=== PATIENT | female | born 1940 | race Caucasian/White ===

== ENCOUNTER 2016-08-16 15:07 | Inpatient (IN) ==
[2016-08-16] MEDS ORDERED: DUONEB (A & A) INH ONE (15:20)
[2016-08-16 15:45] LABS: BASO% 0.8 % (0.0-0.8); EOS# 0.07 X1000 (0.0-0.7); EOS% 0.2 % (0.0-10.0); HEMATOCRIT 18.6 % (37.0-47.0); HEMOGLOBIN 6.1 g/dL (12.0-16.0); IMM GRAN# 2.42 X1000 (0.0-0.04); IMM GRAN% 6.5 % (0.0-0.5); LYMPH# 3.92 X1000 (1.2-3.4); LYMPH% 10.5 % (20.5-51.1); MANUAL DIFF NEEDED? YES; MCH 34.7 PG (27-31); MCHC 32.8 g/dL (33-37); MCV 105.7 FL (81-99); MONO# 3.31 X1000 (0.11-0.59); MONO% 8.9 % (1.7-9.3); NEUT% 73.1 % (42.2-75.2); PLT 365 X1000 (130-400); RBC 1.76 XMIL (4.2-5.4)
[2016-08-16 16:03] LABS: ALBUMIN 3.7 g/dL (3.5-5.0); CALCIUM 8.6 mg/dL (8.8-10.2); POTASSIUM 4.1 mmol/L (3.5-5.1); TOTAL BILIRUBIN 0.25 mg/dL (0.20-1.00); TOTAL PROTEIN 5.8 g/dL (6.3-8.3)
--- NOTE | 2016-08-16 16:04 | Diag Imaging Result Document ---
PROCEDURE NAME: CHEST-1 VIEW - 08/16/2016 PORTABLE CHEST X-RAY: COMPARISON: 03/16/2016. FINDINGS: There is slight decrease in the cardiomegaly. Lung volumes are improved. There is decrease in the pulmonary vascular congestion and bibasilar infiltrates/edema. The pleural effusions have essentially resolved. IMPRESSION: Significant improvement from prior.
[2016-08-16 16:08] LABS: INR > 11.25
[2016-08-16 16:13] LABS: BANDS 3 % (0-1); LYMPHS 12 % (21-51); NRBC 5 % (0-0)
[2016-08-16] MEDS ORDERED: VANCOMYCIN 1 GM/NS 1 GM/250 ML IVPB IV ONE (16:28)
[2016-08-16] MEDS ORDERED: NS 1,000 ML IV ONE (16:28)
[2016-08-16] MEDS ORDERED: VITAMIN K SUBQ ONE (16:37)
[2016-08-16] MEDS: ZOSYN 3.375 GM/NS 3.375 GM/50 ML IVPB IV SCH ×2 (16:43→22:56)
[2016-08-16 17:00] LABS: URINE CULTURE NEEDED? NO; URINE MICRO REVIEW NEEDED? NO; URINE SOURCE CLEAN CATCH
[2016-08-16 17:03] LABS: BILIRUBIN URINE NEGATIVE (NEGATIVE); BLOOD URINE NEGATIVE (NEGATIVE); COLOR YELLOW; GLUCOSE URINE NEGATIVE (NEGATIVE); LEUKOCYTES URINE NEGATIVE (NEGATIVE); NITRITE URINE NEGATIVE (NEGATIVE); PROTEIN URINE NEGATIVE (NEGATIVE); SP GRAVITY URINE 1.028; TURBIDITY URINE CLEAR (CLEAR); UROBILINOGEN URINE NORMAL (NORMAL)
[2016-08-16 17:04] LABS: UR EPITHELIAL CELLS <10 /HPF (<10); URINE BACTERIA NEGATIVE /HPF; URINE RBC <10 /HPF (<10); URINE WBC <10 /HPF (<10)
--- NOTE | 2016-08-16 17:04 | PROVIDER DOCUMENTATION ---
This chart was entered by Kenney Beyer Scribe, acting as scribe for Francis Cornejo MD. HPI-Chest Pain - General Chief Complaint: Shortness of Breath Stated Complaint: SOB Time Seen by Provider: 08/16/16 15:09 Source: patient Allergies/Adverse Reactions: Patient Allergies Allergy/AdvReac Type Severity Reaction Status Date / Time No Known Allergies Allergy Verified 07/28/16 10:51 Home Medications: Home Medication List Medication Instructions Recorded Confirmed Last Taken Type Digoxin 125 mcg PO QPM 08/09/12 08/16/16 08/15/16 19:00 History Diltiazem HCl [Diltiazem ER] 240 mg PO QHS 08/09/12 08/16/16 08/15/16 20:00 History Temazepam 30 mg PO QHS 08/09/12 08/16/16 07/27/16 18:30 History Ondansetron Odt [Zofran Odt] 8 mg PO TID PRN 09/24/15 08/16/16 08/16/16 08:00 History Albuterol Sulfate Inhaler 1 - 2 puff INH [id number] 07/28/16 08/16/16 Unknown History [Ventolin Hfa] Docusate Sodium [Colace] 100 mg PO QAM 07/28/16 08/16/16 08/16/16 08:00 History Fluticasone/Salmet 250/50 INH 1 puff INH QPM 07/28/16 08/16/16 07/28/16 03:00 History [Advair 250/50 Diskus] Ipratropium/Albuterol Sulfate 3 ml IH TID PRN 07/28/16 08/16/16 Unknown History [Iprat-Albut 0.5-3(2.5) mg/3 ml] Warfarin [Coumadin] 5 mg PO DIRECTED 07/28/16 08/16/16 08/16/16 08:00 History Warfarin [Coumadin] 7.5 mg PO DIRECTED 07/28/16 08/16/16 08/14/16 19:00 History - History of Present Illness-CP Nature of Presenting Problem: patient is a 76 y/o F that presents with sharp chest pain x 1 week. patient has shortness of breath with mild cough also for one week. Patient denies fever/ chills, n/v/d, or back pain. Patient has history of COPD and quit smoking less than one year ago. Location: reports: central Quality of Pain: reports: sharp Severity in ED: moderate Onset/Duration: gradual, 1 week ago Timing: still present, constant Context/Activities at Onset: reports: none Modifying Factors: worse with: exercise, movement Associated Symptoms: reports: back pain, shortness of breath. denies: diaphoresis, dizziness, edema, fever/chills, nausea, vomiting Similar Symptoms Previously?: No Recently Seen Here or By Another Healthcare Provider: No Review of Systems - Adult - REVIEW OF SYSTEMS - ADULT Constitutional: denies: chills, fever Eyes: reports: no symptoms reported Ears, Nose, Mouth & Throat: reports: no symptoms reported Cardiovascular: reports: chest pain. denies: palpitations, syncope Respiratory: reports: cough, shortness of breath, wheezing Gastrointestinal: reports: no symptoms reported Genitourinary: reports: no symptoms reported Musculoskeletal: reports: no symptoms reported Integumentary: reports: no symptoms reported Neurological: reports: no symptoms reported Psychiatric: reports: no symptoms reported Endocrine: reports: no symptoms reported Hematologic/Lymphatic: reports: no symptoms reported Allergic/Immunologic: reports: no symptoms reported All Other Systems: Reviewed and Negative Past History - Adult - PAST MEDICAL HISTORY-ADULT Review of Records: reports: Old Records Reviewed, Nursing Assessment Review, Medications Reviewed Major Childhood Illnesses: reports: denies history Cardiovascular: reports: A-Fib, HTN, heart valve problem (valve implant) Respiratory: reports: COPD Gastrointestinal: reports: denies history Obstetrical/Gynecological: reports: denies history Genitourinary: reports: denies history Musculoskeletal: reports: denies history Neurological: reports: denies history Endocrine/Immune: reports: denies history Other Conditions: reports: denies history - PRIOR SURGERIES/PROCEDURES Surgical/Procedure History: reports: appendectomy, CABG, hysterectomy, tonsillectomy, other (aortic valve) - IMMUNIZATION STATUS Childhood Immunizations: See Nurse Assessment Flu Vaccine: See Nurse Assessment - FAMILY HISTORY Family History: reviewed, not pertinent - SOCIAL HISTORY Smoking: quit less than 1 year, cigarettes Living Situation: family Physical Exam-General - PHYSICAL EXAM-ADULT Initial Vital Signs Reviewed: Yes - CONSTITUTIONAL General Appearance: alert, mild distress, moderate distress, thin, other ( chronic ill appearing) - EYES Eyes: PERRL/EOMI, pink conjunctivae - HEAD, EARS, NOSE, MOUTH & THROAT HENMT: normocephalic/atraumatic, moist mucous membranes, normal ENT inspection - NECK Neck: full range of motion, normal inspection - RESPIRATORY Respiratory: no respiratory distress, no accessory muscle use, decreased breath sounds (at bases), wheezing, increased rate - CARDIOVASCULAR Cardiovascular: regular rate, rhythm, no murmur - GASTROINTESTINAL (ABDOMEN) Abdominal Exam: normal bowel sounds, non tender, soft - MUSCULOSKELETAL Back Exam: normal inspection, no CVA tenderness Extremity: normal range of motion, normal inspection, no pedal edema - SKIN Integumentary: normal color, warm/dry - NEUROLOGIC Neurologic: grossly normal, no motor/sensory deficits - PSYCHIATRIC Psych/Mental Status: normal mood/affect, normal thought content, normal thought process, oriented x 3 Progress - PLAN OF CARE/RESULTS Progress/Plan/Lab Results: Vital Signs - 8 hr 08/16/16 15:14 08/16/16 16:09 08/16/16 16:25 Temperature 98.3 F Pulse Rate 95 H 101 H 83 Respiratory Rate 26 H 24 21 Blood Pressure 115/45 115/45 O2 Sat by Pulse Oximetry 94 L 100 Laboratory Results - last 24 hr 08/16/16 08/16/16 08/16/16 15:27 15:27 15:27 WBC RBC Hgb Hct MCV MCH MCHC RDW Std Deviation Plt Count MPV Immature Gran % (Auto) Neut % (Auto) Lymph % (Auto) [place] % (Auto) Eos % (Auto) Baso % (Auto) Immature Gran # (Auto) Neut # (Auto) Lymph # (Auto) [place] # (Auto) Eos # (Auto) Baso # (Auto) Segmented Neutrophils Band Neutrophils Lymphocytes Metamyelocytes Nucleated RBCs Pathologist Review Anisocytosis Macrocytosis PT INR > 11.25 H* PTT (Actin FS) 39.0 H Sodium Potassium Chloride Carbon Dioxide Anion Gap BUN Creatinine Estimated GFR/1.73 m2 BUN/Creatinine Ratio Glucose Calculated Osmolality Calcium Total Bilirubin AST ALT Alkaline Phosphatase Creatine Kinase 39 Troponin T < 0.010 Total Protein Albumin Globulin Albumin/Globulin Ratio Plasma Lactate Urine Source Urine Color Urine Turbidity Urine pH Ur Specific [place] Urine Protein Ur Glucose (Stick) Ur Ketones (Stick) Urine Blood Urine Nitrite Urine Bilirubin Urobilinogen Dipstick Urine Leukocytes 08/16/16 08/16/1608/16/17 15:27 15:27 15:49 WBC 37.22 H RBC 1.76 L Hgb 6.1 L Hct 18.6 L MCV 105.7 H MCH 34.7 H MCHC 32.8 L RDW Std Deviation 16.4 H Plt Count 365 MPV 10.0 Immature Gran % (Auto) 6.5 H Neut % (Auto) 73.1 Lymph % (Auto) 10.5 L [place] % (Auto) 8.9 Eos % (Auto) 0.2 Baso % (Auto) 0.8 Immature Gran # (Auto) 2.42 H Neut # (Auto) 27.20 H Lymph # (Auto) 3.92 H [place] # (Auto) 3.31 H Eos # (Auto) 0.07 Baso # (Auto) 0.30 H Segmented Neutrophils 83 H Band Neutrophils 3 H Lymphocytes 12 L Metamyelocytes 2.0 Nucleated RBCs 5 H Pathologist Review Anisocytosis 2+ Macrocytosis 2+ PT INR PTT (Actin FS) Sodium 135 L Potassium 4.1 Chloride 94 L Carbon Dioxide 27 Anion Gap 14 BUN 48 H Creatinine 1.2 H Estimated GFR/1.73 m2 44 BUN/Creatinine Ratio 40 Glucose 115 H Calculated Osmolality 284 Calcium 8.6 L Total Bilirubin 0.25 AST 23 ALT 17 Alkaline Phosphatase 50 Creatine Kinase Troponin T Total Protein 5.8 L Albumin 3.7 Globulin 2.1 Albumin/Globulin Ratio 1.8 Plasma Lactate 1.8 Urine Source Urine Color Urine Turbidity Urine pH Ur Specific [place] Urine Protein Ur Glucose (Stick) Ur Ketones (Stick) Urine Blood Urine Nitrite Urine Bilirubin Urobilinogen Dipstick Urine Leukocytes 08/16/16 16:45 WBC RBC Hgb Hct MCV MCH MCHC RDW Std Deviation Plt Count MPV Immature Gran % (Auto) Neut % (Auto) Lymph % (Auto) [place] % (Auto) Eos % (Auto) Baso % (Auto) Immature Gran # (Auto) Neut # (Auto) Lymph # (Auto) [place] # (Auto) Eos # (Auto) Baso # (Auto) Segmented Neutrophils Band Neutrophils Lymphocytes Metamyelocytes Nucleated RBCs Pathologist Review Anisocytosis Macrocytosis PT INR PTT (Actin FS) Sodium Potassium Chloride Carbon Dioxide Anion Gap BUN Creatinine Estimated GFR/1.73 m2 BUN/Creatinine Ratio Glucose Calculated Osmolality Calcium Total Bilirubin AST ALT Alkaline Phosphatase Creatine Kinase Troponin T Total Protein Albumin Globulin Albumin/Globulin Ratio Plasma Lactate Urine Source CLEAN CATCH Urine Color YELLOW Urine Turbidity CLEAR Urine pH 5.0 Ur Specific [place] 1.028 Urine Protein NEGATIVE Ur Glucose (Stick) NEGATIVE Ur Ketones (Stick) NEGATIVE Urine Blood NEGATIVE Urine Nitrite NEGATIVE Urine Bilirubin NEGATIVE Urobilinogen Dipstick NORMAL Urine Leukocytes NEGATIVE Orders Category Date Time Status Oxygen Therapy- ED Nursing DIRECTED Care 08/16/16 15:20 Active Saline Loc DIRECTED Care 08/16/16 15:20 Active CHEST-1 VIEW [RAD] Stat Exams 08/16/16 15:24 Draft BLOOD CULTURE [BLDCUL] Stat Lab 08/16/16 15:49 Results CBC WITH DIFF [HEME] Stat Lab 08/16/16 15:27 Completed CK PROFILE [SP CHEM] Stat Lab 08/16/16 15:27 Completed COMPREHENSIVE METABOLIC PANEL [CHEM] Stat Lab 08/16/16 15:27 Completed LACTATE, PLASMA [CHEM] Stat Lab 08/16/16 15:49 Completed LRPC (RED CELLS) [BBK] Stat Lab 08/16/16 16:45 Uncollected PROTIME WITH INR [COAG] Stat Lab 08/16/16 15:27 Completed PTT [COAG] Stat Lab 08/16/16 15:27 Completed TROPONIN T Stat Lab 08/16/16 15:27 Completed TYPE & SCREEN [BBK] Stat Lab 08/16/16 16:42 Uncollected URINALYSIS W/POSS RFLX CULT [URINALYSIS] Routine Lab 08/16/16 16:45 Results 0.9% Sodium Chloride Inj [Ns] 1,000 ml Med 08/16/16 16:28 Active IV 999 mls/hr Albuterol 2.5MG/Ipratrop 0.5MG [Duoneb (A & A)] Med 08/16/16 15:20 Discontinued 3 ml INH NOW ONE Phytonadione [Vitamin K] Med 08/16/16 16:37 Once 10 mg SUBQ NOW ONE Piperacil/Tazobact 3.375 gm/Ns [Zosyn 3.375 gm/Ns] Med 08/16/16 16:30 Active 3.375 gm in 50 ml IV Q6H Vancomycin 1 gm/Ns Med 08/16/16 16:28 Active 1 gm in 250 ml IV NOW Aerosol Treatments Routine Oth 08/16/16 15:21 Completed Aerosol Treatments Stat Oth 08/16/16 15:20 Completed Aerosol Treatments Stat Ot 08/16/16 15:21 Completed Pulse Oximetry Stat Ot 08/16/16 15:20 Completed Result Diagrams: 08/16/16 15:27 08/16/16 15:27 Departure - Departure Time of Disposition Decision: 17:04 DIAGNOSIS: Pneumonia, Coagulopathy, Chronic obstructive lung disease, Anemia Disposition: ADMITTED INPATIENT 09 Certified Medical Emergency: Emergent Condition: Serious Attestation - Physician/ WYATT Attestation Patient care was provided by Advanced Practice Provider:: Yes Advanced Practice Provider documentation review:: The Mid-level provider documentation, treatment plan and medical decision making was reviewed by the physician who agrees with all treatment and medical decision making by the MLP. The physician spent face to face time with patient:: Yes Advanced Practice Provider documentation review:: The physician spent face to face time with this patient and agrees with all MLP documentation, treatment, and medical decision making by the MLP. See provider notes for further information. This chart was documented by the indicated scribe, (Kenney Beyer, Cynthiaibe) and accurately reflects the services I performed and decisions made by Clemente castellanos Christophe I, MD, as attested by the provider's signature.
[2016-08-16] MEDS: MORPHINE IV PRN ×2 (17:50→23:20)
[2016-08-16 18:06] LABS: MAGNESIUM 2.2 mg/dL (1.5-2.7); RETIC% 8.73 % (0.8-2.1); RETIC-HE 41.5 PG (28.2-36.6)
[2016-08-16 18:10] LABS: ACETAMINOPHEN 54.6 ug/mL (10-30)
[2016-08-16 18:19] LABS: UR AMPHETAMINES QUAL NONE DETECTED (NONE DETECT); UR BARBITUATES QUAL NONE DETECTED (NONE DETECT); UR BENZODIAZEPIN QUAL PRESUMPTIVE POSITIVE (NONE DETECT); UR CANNABINOIDS QUAL NONE DETECTED (NONE DETECT); UR COCAINE QUAL NONE DETECTED (NONE DETECT); UR METHADONE QUAL NONE DETECTED (NONE DETECT); UR OPIATES QUAL NONE DETECTED (NONE DETECT); UR OXYCODONE QUAL NONE DETECTED (NONE DETECT); UR PCP QUAL NONE DETECTED (NONE DETECT)
[2016-08-16 18:20] LABS: FREE T4 1.01 ng/dL (0.93-1.70)
[2016-08-16] MEDS ORDERED: NS 500 ML ONE (20:03)
--- NOTE | 2016-08-16 23:03 | HISTORY AND PHYSICAL ---
PCP: Dr. Strickland. CHIEF COMPLAINT: Back pain. HISTORY OF PRESENT ILLNESS: Mrs. Kc is an unfortunate 76-year-old female, well known to our service. She has a history of COPD, chronic pain, prescription medication dependence, artificial mechanical aortic valve with previous admissions for profound coagulopathy and others, who presents today with severe lower back pain. She reports she has had back pain for years. As she is unable to get any more pain medication because her pain doctor Dr. Wilhelm has left town, she has been having to treat her pain on her own with over-the- counter medications and occasionally seeing her PCP. She reports yesterday she took upwards of 10 Tylenol tablets for pain relief. She reports her son could not watch her agonize in pain anymore today and sent her here to the ER. In the ER she had labs and diagnostics done. She was noted to have a white count of 37. Her INR was greater than 11.25 with hemoglobin and hematocrit of 6.1 and 18.6. She does report melenic stools and abdominal pain. Apparently she also has cholecystitis which is known. However she is not a surgical candidate given her comorbidities and high risk for surgery. She reports nausea no vomiting, no fevers, no chills. She does report cough with white sputum production. She denies any lower extremity edema. She denies any overt chest pain. Given the constellation of her symptoms, labs and overall picture, we are going to put her in the ICU for now. PAST MEDICAL HISTORY: 1. Chronic lower back pain. 2. Paroxysmal atrial fibrillation. 3. Coronary disease. 4. Aortic valve disease status post mechanical aortic valve replacement. 5. COPD on home O2. 6. Insomnia. 7. Previous admissions for coagulopathy. 8. Medical noncompliance. 9. Prescription medication dependence/abuse. PAST SURGICAL HISTORY: She has an appendectomy, CABG with mechanical valve replacement of the aorta, hysterectomy, tonsillectomy. SOCIAL HISTORY: She continues to live with her son. She reports that she quit smoking last August. She denies current alcohol use but she did state that she has been overtaking her temazepam as it helps her with her pain. FAMILY HISTORY: Noncontributory. ALLERGIES: No known drug allergies. HOME MEDICATIONS: Albuterol 1-2 puffs inhaled as needed, digoxin 125 mcg at night, Cardizem ER 240 mg p.o. at bedtime, Colace 100 mg a.m., Advair 250/50 one puff inhaled at night, albuterol as needed, Zofran ODT 8 mg p.o. as needed every 8 hours for nausea, vomiting, temazepam 30 mg at bedtime, Coumadin 5 mg and 7.5 mg as directed. REVIEW OF SYSTEMS: A 14 point review of systems obtained and found to be negative with the exception of the HPI. PHYSICAL EXAMINATION: VITAL SIGNS: Blood pressure is 124/47, heart rate 75, respiratory rate 18, O2 saturation 100% on room air. Temperature is 98.3 degrees. GENERAL: This is a frail, borderline cachectic appearing, disheveled appearing 76-year-old female lying in hospital bed. No acute distress. NEUROLOGIC: The patient is awake, alert. She follows commands. She has no focal deficits. HEENT: Head is atraumatic, normocephalic. Pupils are equal, round, reactive to light. Oral mucosa is dry. Trachea is midline. CHEST: Diminished at the bases. Ex[place]ion is equal bilaterally but her breath sounds are diminished. CV: Irregular rate and rhythm. S1-S2 is noted. Mechanical aortic valve murmur noted. GI: Right upper quadrant tenderness to palpation. Overall belly is soft. EXTREMITIES: Without edema, clubbing or cyanosis. DIAGNOSTIC DATA: Chest x-ray shows mild pulmonary vascular congestion and bibasilar infiltrates which have improved from previous. WBC 37.22, hemoglobin 6.1, hematocrit 18.6 , MCV 105.7, platelets 365,000. PT is greater than 100, INR greater than 11.25, PTT 39. Sodium 135, potassium 4.1, chloride 94, CO2 27, anion gap 14, BUN 48, creatinine 1.2, glucose 115, calcium 8.6. LFTs are within normal limits. Troponin is negative. Protein 5.8. UA is negative for acute process. ASSESSMENT/PLAN: 1. Coagulopathy: The patient is going to be reversed with FFP and vitamin K as she likely has upper gastrointestinal bleeding. We will transfuse her and monitor her INR being mindful of her mechanical valve. However at this time the greatest risk for this patient is bleeding. We will consult GI. We will hold off on her Coumadin for now. 2. Acute blood loss anemia: Secondary to upper gastrointestinal bleeding. We are going to check iron studies. Transfuse her 2 units of PRBCs with Lasix in between the FFP and PRBCs and monitor her hemoglobin and hematocrit closely. She is also likely folate and B12 deficient given her MCV. We will also treat this as well. 3. Upper gastrointestinal bleed: Dr. Moura has been consulted. The patient is NPO. We will add very gentle IV fluid hydration and Protonix IV b.i.d. Her hemodynamics are stable at this time. 4. Leukocytosis with signs of early sepsis: Source is unclear at this time. She likely has some pneumonia as well as possible intraabdominal process given her history of cholecystitis. We are giving IV fluids, broad-spectrum antibiotics, her lactic acid is within normal limits and her hemodynamics are stable at this time. We will monitor this closely. 5. Abdominal pain: We are checking a CT of the abdomen and pelvis with oral contrast now. She has mild renal insufficiency. GI has also been consulted. 6. Renal insufficiency: GFR 44 based on age and creatinine and weight. Will hold off on any nephrotoxic medications and give light IV fluid hydration and monitor her creatinine. 7. Chronic obstructive pulmonary disease: Continue broad-spectrum antibiotics, breathing treatments and aggressive pulmonary toilet. She does not appear to be in exacerbation at this time. 8. Tylenol overdose: Patient reports she took multiple pills of Tylenol yesterday in attempt for pain relief. This in part is likely worsening her INR. We are going to check a complete toxicology screen and monitor Tylenol levels and treat accordingly. We have instructed the patient against overuse of any over the counter medications. 9. Deep vein thrombosis prophylaxis with thromboembolic devices and sequential compression devices given the gastrointestinal bleed. Further recommendations to follow. Dictated by SAHIL Greenfield for Ashok Mata MD cc: MD Ashok Vazquez MD pt examined, agree with above APENOT MTDD
[2016-08-16] MEDS ORDERED: DUONEB (A & A) INH PRN (23:43)
[2016-08-16] MEDS ORDERED: ZOSYN 3.375 GM/NS 3.375 GM/50 ML IVPB IV SCH (23:43)
[2016-08-16] MEDS ORDERED: VANCOMYCIN IV PER PHARMACY MISC SCH (23:43)
[2016-08-16] MEDS ORDERED: LASIX IV PRN (23:43)
[2016-08-16] MEDS ORDERED: PROTONIX IV SCH (23:43)
[2016-08-16] MEDS ORDERED: SODIUM CHLORIDE 0.9% INJ SCH (23:43)
[2016-08-16] MEDS: CARDIZEM CD PO SCH (23:58)
[2016-08-16] MEDS: NS 1,000 ML IV SCH (23:58)
[2016-08-17] MEDS: RESTORIL PO SCH ×2 (00:01→21:41)
[2016-08-17] MEDS: DUONEB (A & A) INH SCH ×7 (03:55→23:28)
[2016-08-17] MEDS: ADVAIR 250/50 DISKUS INH SCH (03:55)
[2016-08-17] MEDS: VENTOLIN HFA INH SCH ×5 (03:55→23:29)
[2016-08-17 04:18] LABS: URINE CULTURE NEEDED? NO; URINE MICRO REVIEW NEEDED? NO; URINE SOURCE CATH
[2016-08-17 04:26] LABS: BILIRUBIN URINE NEGATIVE (NEGATIVE); BLOOD URINE NEGATIVE (NEGATIVE); COLOR STRAW; GLUCOSE URINE NEGATIVE (NEGATIVE); LEUKOCYTES URINE NEGATIVE (NEGATIVE); NITRITE URINE NEGATIVE (NEGATIVE); PROTEIN URINE NEGATIVE (NEGATIVE); SP GRAVITY URINE 1.008; TURBIDITY URINE CLEAR (CLEAR); UROBILINOGEN URINE NORMAL (NORMAL)
[2016-08-17 04:27] LABS: UR EPITHELIAL CELLS <10 /HPF (<10); URINE BACTERIA NEGATIVE /HPF; URINE RBC <10 /HPF (<10); URINE WBC <10 /HPF (<10)
[2016-08-17] MEDS: ZOSYN 3.375 GM/NS 3.375 GM/50 ML IVPB IV SCH ×4 (05:06→21:41)
[2016-08-17 05:48] LABS: HEMATOCRIT 23.1 % (37.0-47.0); HEMOGLOBIN 7.7 g/dL (12.0-16.0); MCH 32.4 PG (27-31); MCHC 33.3 g/dL (33-37); MCV 97.1 FL (81-99); RBC 2.38 XMIL (4.2-5.4)
[2016-08-17 05:49] LABS: INR 1.82; PROTIME 19.8 Seconds (9.2-11.7)
[2016-08-17 06:16] LABS: AGAP 14; ALBUMIN 3.7 g/dL (3.5-5.0); ALKALINE PHOSPHATASE 50 U/L (32-104); BUN 29 mg/dL (8-22); CALCIUM 7.7 mg/dL (8.8-10.2); CHLORIDE 98 mmol/L (98-107); COSMO 282; GOT 24 U/L (10-30); GPT 15 U/L (10-36); SODIUM 139 mmol/L (136-145); TCO2 27 mmol/L (25-35); TOTAL BILIRUBIN 0.64 mg/dL (0.20-1.00); TOTAL PROTEIN 5.8 g/dL (6.3-8.3)
[2016-08-17] MEDS: COLACE PO SCH (09:18)
[2016-08-17] MEDS: MORPHINE IV PRN ×2 (09:22→16:05)
--- NOTE | 2016-08-17 09:31 | Diag Imaging Result Document ---
PROCEDURE NAME: CT ABD/PELVIS ORAL CONTR ONLY - 08/16/2016 CT ABDOMEN AND PELVIS WITH ORAL CONTRAST ONLY: COMPARISON: 03/11/2016. FINDINGS: Review of the lung bases reveals a stable large calcified granuloma in the left lower lobe. There has been interval development of a noncalcified nodule with a vaguely lobulated lower border in the right lower lobe on image 8 of series 3. It measures 1.2 x 1.1 cm in the greatest axial dimensions. Although this may represent a new inflammatory nodule, neoplasm cannot completely be excluded. Consider CT-guided biopsy or at least a follow-up chest CT in 3 months based on Joe Society Criteria for a nodule of this size. There is mild subsegmental atelectasis and/or scarring at the lung bases. There is cardiomegaly. There is a large stone in the lumen of the gallbladder. The gallbladder is somewhat distended. However, no surrounding inflammatory changes are appreciated. No renal or ureteral stones are identified. There is no evidence of hydronephrosis. There is suggestion of mild wall thickening involving a short segment of the small bowel in the right lower quadrant. This can be appreciated on image 107 of series 2. It is nonspecific. Focal enteritis should be considered. There is a stable left renal cyst. There is extensive aortoiliac atherosclerotic calcification. The remainder of the solid viscera of the abdomen and pelvis and the remainder of the GI tract is essentially unremarkable. No free abdominal gas or free fluid is appreciated. IMPRESSION: 1. Short segment of apparently mild small bowel wall thickening in the right lower quadrant suggesting possible focal enteritis. 2. Cholelithiasis. 3. New fairly prominent noncalcified nodule in the right lower lobe near the anterior lung base. Please see the above discussion. 4. Other incidental/nonacute findings detailed above. [facility]
[2016-08-17] MEDS ORDERED: LASIX IV ONE (11:26)
[2016-08-17] MEDS: POTASSIUM CHLORIDE 20 MEQ/SWI 20 MEQ/100 ML IVPB IV SCH ×2 (11:42→15:38)
[2016-08-17] MEDS ORDERED: NS 250 ML ONE (12:06)
[2016-08-17] MEDS: PROTONIX 80 MG in NS 80 ML IV SCH ×2 (12:12→21:42)
--- NOTE | 2016-08-17 14:03 | CONSULTATION ---
DATE OF CONSULTATION: 08/17/2016 REFERRING PHYSICIAN: Koko Mata M.D. PRIMARY CARE PHYSICIAN: Marivel Strickland M.D. INDICATION FOR CONSULTATION: 1. Melena. 2. Epigastric pain. 3. Severe anemia. HISTORY OF PRESENT ILLNESS: The patient is a 76-year-old white female who is on Coumadin secondary to aortic valve replacement. She has mechanical heart valve that requires lifelong anticoagulation. She reports 1 week of melena and epigastric pain. She presented to the emergency room with Coumadin toxicity. Because of her profound anemia and melena, we are asked to perform endoscopic evaluation. PAST MEDICAL HISTORY: 1. COPD, on home oxygen. 2. Atrial fibrillation. 3. Aortic valve replacement secondary to valvular heart disease. She has a mechanical valve and is on lifelong Coumadin. 4. Chronic pain syndrome. 5. Lower back pain. 6. Coronary artery disease. 7. Insomnia. 8. History of coagulopathy secondary to Coumadin toxicity. 9. Medical noncompliance. 10. Dependence on prescription pain medication. PAST SURGICAL HISTORY: 1. Appendectomy. 2. Coronary artery bypass surgery with aortic valve replacement. 3. Hysterectomy. 4. Tonsillectomy. SOCIAL HISTORY: The patient has been a longtime smoker. She stopped smoking in 2016. She denies alcohol, recreational drug use. FAMILY HISTORY: Positive for coronary artery disease but negative for colon cancer, colon polyps. REVIEW OF SYSTEMS: Remarkable for epigastric pain, weakness and fatigue. MEDICATION ALLERGIES: None. HOME MEDICATIONS: 1. Albuterol. 2. Digoxin. 3. Cardizem ER. 4. Colace. 5. Advair. 6. Albuterol. 7. Zofran. 8. Temazepam. 9. Coumadin. PHYSICAL EXAM: General: She is in no acute distress. Vital signs: Her blood pressure is 141/63, pulse 78, respirations 12, temperature of 97.8 degrees. HEENT: Negative for jaundice. Her conjunctivae are pale. Her oropharyngeal mucosal membranes dry. Pulmonary : She has clear breath sounds. They are somewhat decreased in the bases bilaterally. Cardiovascular Examination: She has regular rate and rhythm with mechanical heart sounds. No murmurs, gallops, or rubs. Extremities: Bilaterally are negative for cyanosis, clubbing, or edema. OBJECTIVE DATA: Remarkable for hemoglobin of 7.7, hematocrit of 23.1 and a white count of 25.84. She has 260,000 platelets. Her PT is 19.8 with an INR of 1.82. Sodium is 139, potassium 3.0, chloride 98, CO2 27, BUN 29, creatinine 0.7, glucose of 73. Calcium 7.7, total bilirubin 0.64, AST 24, ALT 15, alkaline phosphatase 50, CK 58, total protein 5.[address] scan of the abdomen and pelvis revealed a pulmonary nodule, gallstones, possible small bowel enteritis and left renal cyst. IMPRESSION: 1. Melena. 2. Epigastric pain. 3. Probable gastrointestinal bleed. 4. Coumadin toxicity. RECOMMENDATION: 1. Last admission, we recommended an EGD prior to discharge due to her presentation with melena in March 2016. Unfortunately, the patient was discharged to home and never returned to clinic for an EGD. I recommend that we perform the exam today in light of her ongoing GI symptoms. 2. The patient reports in her history to the admitting service she took multiple Tylenol tablets yesterday. We await her acetaminophen levels. 3. I agree with transfusing as you are doing. I will also administer another unit of FFP in order to correct her coagulopathy prior to the EGD which we will perform this afternoon. 4. Continue Protonix 40 mg IV q.12 hours. 5. Additional recommendations to follow based on clinical course. cc: Marivel Strickland MD [facility]
--- NOTE | 2016-08-17 15:30 | EKG Report ---
Test Performed on : 08/17/2016 2:20:08 PM Test Reason : dyspnea Blood Pressure : / mmHG Vent. Rate : 076 BPM Atrial Rate : 094 BPM P-R Int : 000 ms QRS Dur : 152 ms QT Int : 414 ms P-R-T Axes : 000 096 043 degrees QTc Int : 465 ms Atrial fibrillation. with premature ventricular or aberrantly conducted complexes. Right bundle branch block T wave abnormality, consider lateral ischemia Abnormal ECG When compared with ECG of 11-MAR-2016 18:11, T wave inversion more evident in Anterior leads Confirmed by Rodrigo PHOENIX, Shant King ([id number]) on 08/18/2016 5:52:15 PM
[2016-08-17 18:19] LABS: HEMATOCRIT 27.3 % (37.0-47.0); HEMOGLOBIN 9.2 g/dL (12.0-16.0)
--- NOTE | 2016-08-17 18:42 | CONSULTATION ---
DATE OF CONSULTATION: 08/17/2016 REASON FOR CONSULTATION: Coumadin toxicity, anemia. HISTORY OF PRESENT ILLNESS: Ms. Kc is a 76-year-old female who presented to the hospital on August 16 complaining of chronic back pain associated with weakness, black stools. Upon presentation to the emergency room, they did blood work and that indicated that her hemoglobin was very low at 6.1, hematocrit was 18.6, white count was 37,220. Her INR was greater than 11.25. They proceeded to give the patient blood products including fresh frozen plasma and blood transfusions. Subsequently hemoglobin was 7.7 with hematocrit of 23.1% and white count has dropped to 25,000. She does demonstrated 8.7% reticulocytes and her MCV on initial blood work was 105.7. The patient is not having any chest pain at this time. They have consulted us because of her history of valvular disease. History is positive for paroxysmal atrial fibrillation. 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 She has been on long-term anticoagulation with warfarin. She has COPD. She is on home oxygen. She has been medically noncompliant in the past. She is on long-term narcotic medications for pain issues. Her surgical history is positive for aortic valve replacement on 07/25/1996, Dr. Padgett, using a [address] Randall prosthesis. The patient at that time was having angina pectoris. She is not known to have had coronary heart disease, however, previous echocardiograms have suggested the possibility of a wall motion abnormality. The patient has had previous cardioversions for atrial fibrillation. She has chronic back pain. Her history is positive for tonsillectomy, appendectomy, and hysterectomy. SOCIAL HISTORY: She is . She lives with her son. She is a smoker. She quit a few months ago. Not a drinker. FAMILY HISTORY: Son had sudden at the age of 36. ALLERGIES: Negative. HOME MEDICATIONS: 1. Warfarin. 2. Furosemide. 3. Hydrocodone/acetaminophen twice a day. 4. Temazepam. 5. Centrum. 6. Ipratropium. 7. Advair. 8. Docusate. 9. Diltiazem 240 at bedtime. 10.Digoxin 0.125 daily. REVIEW OF SYSTEMS: Noncontributory. Her functional status has dropped dramatically. She admits to having black stools lately. She has had an abnormal EKG for a long time with a right bundle branch block pattern. She is chronically short of breath. Her appetite is not good. Her BMI is 18.3. She has dropped her weight. PHYSICAL EXAMINATION: Vital signs: Blood pressure 141/63, temperature 98.7, pulse 78, respirations 18. General: She is awake, alert, pale, in no distress. HEENT: Unremarkable. Chest: Diminished breath sounds diffusely with hyperresonance to percussion. Cardiac: Heart sounds are irregularly irregular. She has a closing click of prosthetic aortic valve. Abdomen: Nontender, soft. No masses, hepatomegaly. Extremities: Show decreased pulses. No peripheral edema. Neurologic: She moves four extremities, follows commands. LABORATORY DATA: Her chest x-ray from admission showed evidence of cardiomegaly, calcification of the aortic root with some vascular redistribution. CT scan of the abdomen and pelvis showed cholelithiasis, enteritis. BUN 29, creatinine 0.7, potassium 3.0. Troponins were negative. IMPRESSION: 1. Patient presented with severe anemia with some macrocytic features, probably secondary to chronic and acute gastrointestinal bleeding. Patient is on long-term anticoagulation for management of mechanical prosthetic aortic valve, [employer] Randall. 2. Chronic atrial fibrillation versus paroxysmal. 3. Questionable history of coronary heart disease. 4. Chronic back pain with long-term narcotic use. 5. Chronic obstructive pulmonary disease with long-term tobacco use. RECOMMENDATIONS: At this point in time, we will observe the patient's clinical course. I would continue digoxin and diltiazem as she was doing at home. I do not have any issue about the patient having an endoscopy. She needs that. After endoscopic studies and once they have ruled out active GI bleeding, she needs to be put back on warfarin to accomplish therapeutic levels of anticoagulation. We will be happy to arrange for followup. Thank you, again, for the opportunity to participate in her evaluation. cc: Brandon Coffey MD
[2016-08-17] MEDS ORDERED: DIPRIVAN 1% ONE (19:14)
[2016-08-17] MEDS ORDERED: SANDOSTATIN IV ONE (20:10)
[2016-08-17] MEDS: CARDIZEM CD PO SCH (21:41)
[2016-08-17] MEDS: CARAFATE LIQUID PO SCH (21:41)
[2016-08-17] MEDS: SANDOSTATIN 500 MICROGM in D5W 100 ML IV SCH (21:42)
[2016-08-17] MEDS: NS 1,000 ML IV SCH (21:42)
[2016-08-18] MEDS: CARAFATE LIQUID PO SCH ×4 (02:38→20:53)
[2016-08-18] MEDS: MORPHINE IV PRN ×4 (02:38→18:30)
[2016-08-18] MEDS: VENTOLIN HFA INH SCH ×4 (03:36→23:24)
[2016-08-18] MEDS: DUONEB (A & A) INH SCH ×6 (03:37→23:24)
[2016-08-18] MEDS: ZOSYN 3.375 GM/NS 3.375 GM/50 ML IVPB IV SCH ×4 (04:45→22:36)
[2016-08-18] MEDS: ADVAIR 250/50 DISKUS INH SCH ×2 (06:12→19:23)
[2016-08-18] MEDS: SANDOSTATIN 500 MICROGM in D5W 100 ML IV SCH ×2 (06:14→15:43)
[2016-08-18 06:17] LABS: AGAP 10; ALBUMIN 3.4 g/dL (3.5-5.0); ALKALINE PHOSPHATASE 61 U/L (32-104); BUN 15 mg/dL (8-22); CALCIUM 8.1 mg/dL (8.8-10.2); CHLORIDE 95 mmol/L (98-107); COSMO 274; GOT 27 U/L (10-30); GPT 13 U/L (10-36); POTASSIUM 3.8 mmol/L (3.5-5.1); SODIUM 134 mmol/L (136-145); TCO2 29 mmol/L (25-35); TOTAL BILIRUBIN 0.56 mg/dL (0.20-1.00); TOTAL PROTEIN 5.6 g/dL (6.3-8.3)
[2016-08-18] MEDS: PROTONIX 80 MG in NS 80 ML IV SCH ×2 (07:29→17:35)
--- NOTE | 2016-08-18 08:01 | PROGRESS NOTE ---
DATE: 08/17/2016 SUBJECTIVE: The patient has no focal complaints. OBJECTIVE: Vital signs: Blood pressure 125/52, heart rate 69, respiratory rate 16, temperature 99.3 degrees, 100% on 2 L. Cardiovascular: Regular rate and rhythm. Pulmonary: Bilateral breath sounds. Clear to auscultation. GI: Soft, nontender, nondistended. Bowel sounds are positive. Extremities: No clubbing or cyanosis. Lymphatic: No peripheral edema. Neurological: Nonfocal. LABORATORY DATA: White count is 25, down from 37, hemoglobin and hematocrit are 7 and 23, platelets of 260,000. INR is down to 1.8 from greater than 11. Potassium of 3, BUN of 29, calcium 7.7. UA was clear. Micro is unremarkable. ASSESSMENT AND PLAN: 1. Upper gastrointestinal bleed. I am going to switch her to a Protonix drip because she did have melena. Hemoglobin and hematocrit have come back and INR has greatly improved. We will continue to monitor that. I think the threshold for endoscopy would be less than 1.5 but that will be at the discretion of the GI physician. She has gotten FFP and vitamin K. So, we will follow clinically. 2. Symptomatic anemia. With her cardiac history I am going to go ahead and give her 1 more unit of blood because she is 7 and 23 and we will follow closely. 3. Coagulopathy. We will continue to monitor. Obviously we will need to resume her anticoagulation as soon as cleared by GI after her endoscopic workup. 4. Chronic obstructive pulmonary disease exacerbation. Continue antibiotics and breathing treatments. 5. Multilobar pneumonia. I am going to repeat her chest x-ray tomorrow and we will follow clinically. Again, she is currently on vancomycin and Zosyn. 6. Disposition. Pending her clinical course. We will continue to monitor her in then ICU. cc: Ashok Mata MD
[2016-08-18] MEDS ORDERED: LR 1,000 ML ONE (08:26)
[2016-08-18] MEDS ORDERED: ANESTHESIA PB SET 88 IN 5742 ONE (08:26)
[2016-08-18] MEDS ORDERED: XYLOCAINE-MPF 2% ONE (08:26)
[2016-08-18] MEDS: COLACE PO SCH (09:06)
[2016-08-18 09:35] LABS: HEMOGLOBIN 8.9 g/dL (12.0-16.0); INR 0.99; MCV 97.1 FL (81-99); MPV 9.7 FL (7.4-10.4); PROTIME 10.4 Seconds (9.2-11.7); RBC 2.78 XMIL (4.2-5.4)
[2016-08-18] MEDS: NS 1,000 ML IV SCH (15:57)
[2016-08-18] MEDS ORDERED: VANCOMYCIN 1 GM/NS 1 GM/250 ML IVPB IV SCH ×2 (17:00→18:00)
--- NOTE | 2016-08-18 18:22 | PROGRESS NOTE ---
DATE: 08/18/2016 SUBJECTIVE: The patient is feeling well. She has no complaint. She denies having any recurrent bleeding. OBJECTIVE: Vital signs: Blood pressure 132/63, pulse of 86, respirations 22, temperature 99.9 degrees, sat of 94% on 2 L nasal cannula. General appearance: Thin, white female in no acute distress. HEENT: Anicteric. Clear conjunctivae. Neck: Supple. No JVD. No bruit. Cardiovascular: S1, S2. Normal rate and rhythm. No murmur, rubs, or gallops. Pulmonary: Clear to auscultation bilaterally. GI: Soft, nontender, nondistended. Normoactive bowel sounds. Musculoskeletal: No clubbing, cyanosis, edema. LABORATORY: White count 16.77, hemoglobin 8.9, hematocrit of 27.0, platelets 263,000. Chemistry: Sodium 134, potassium 3.8, chloride 95, bicarb 29, BUN 15, creatinine 0.5. Glucose 180. Blood cultures and stool cultures have been negative. The CAT scan of the abdomen and pelvic showed short segment of the apparent small bowel wall thickening in the right lower quadrant suggesting possible enteritis. ASSESSMENT/PLAN: 76-year-old admitted to the hospital for lower GI bleed. 1. Lower low GI bleed, status post three packs red blood cells and fresh frozen plasma. Hemoglobin and hematocrit seem to be stabilized. GI is following. 1. Paroxysmal atrial fibrillation and aortic valve replacement with a mechanical valve. The patient has been on long-term anticoagulation with warfarin with increased her risk of bleeding. For her atrial fibrillation we will continue digoxin and diltiazem. Hold her anticoagulation for now. The patient will need an endoscopy at some point. We need to put the patient back on Coumadin once GI is done with the procedure. The patient currently on the broad-spectrum antibiotics. Culture has remained negative thus far. We will probably DC the antibiotics within the next day or 2 if cultures continue to remain negative. 2. The patient also has melena. Probably had some component of upper GI bleed. The patient on octreotide and Protonix drips. CODE STATUS: The patient is a full code.
[2016-08-18] MEDS: RESTORIL PO SCH (20:53)
[2016-08-18] MEDS: CARDIZEM CD PO SCH (20:53)
[2016-08-18] MEDS: LANOXIN PO SCH (20:53)
--- NOTE | 2016-08-18 20:55 | PROGRESS NOTE ---
DATE: 08/18/2016 ADDENDUM: SUBJECTIVE: After my initial visit during rounds, the patient became acutely short of breath with desaturations into the 60s and 70s. She responded to 100% nonrebreathing mask with saturations in the 100%. In light of this, I recommend: 1. Pulmonary consult with Dr. Mirza Tellez. 2. I will begin Lovenox 1 mg/kg every 12 hours starting now. 3. Please check a CBC at midnight and monitor for active GI bleeding in light of her endoscopic findings yesterday. cc: MD Marivel Salazar MD Alexis R. Penot, MD
--- NOTE | 2016-08-18 21:00 | OPERATIVE NOTE ---
PROCEDURE DATE: 08/17/2016 REFERRING PHYSICIAN: Ashok Mata M.D. PRIMARY CARE PHYSICIAN: Marivel Strickland M.D. INDICATIONS FOR PROCEDURE: 1. Melena. 2. Anemia. 3. Epigastric pain. 4. Coumadin toxicity. PROCEDURE PERFORMED: Esophagogastroduodenoscopy. CONSENT: Informed consent was obtained from the patient prior to the procedure. The risks, benefits, and alternatives were discussed with the patient and her daughter. The risks benefits and alternatives were reviewed in detail. MEDICATION: The patient received monitored anesthesia care. PERFORMING PHYSICIAN: Dayami Romero M.D. ASSISTANTS: 1. [facility] 2. Jared Jacobo RN. 3. Henna Seo CRNA. 4. Chandler Napier M.D. (anesthesia). COMPLICATIONS: None. ESTIMATED BLOOD LOSS: None. SPECIMENS REMOVED: None. FINDINGS: After sedation was achieved, the upper endoscope was inserted to the third portion of the duodenum. The hypopharynx appeared normal. The tubular esophagus was tortuous, but had a grossly normal mucosa. There was no evidence of varices or Garza's mucosa. The GE junction was measured at 36 cm from the incisors. There was a hiatal hernia that spanned from 36-42 cm. In the gastric lumen, there was severe erosive gastritis and multiple hyperemic but nonbleeding AVMs in the body and fundus. On retroflexed view, there were a few scattered fundic gland polyps, but the fundus was mostly notable for multiple nonbleeding AVMs. On forward view, the pylorus appeared endoscopically normal. In the duodenal bulb, there were at least 3 duodenal ulcers that ranged in size from 5-10 mm in size. All 3 had a whitish base with no stigmata of active bleeding. There was duodenitis with multiple deep erosions in the 1st and 2nd portion of the duodenum. The ampulla of Vater appeared endoscopically normal. In the third portion of the duodenum, the mucosa was grossly normal. After the exam was complete, the lumen was decompressed and the scope was removed without incident. IMPRESSION: 1. Tortuous esophagus but grossly normal. 2. Hiatal hernia. 3. Erosive gastritis. 4. 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 5. Duodenal bulb ulcer. 6. Severe duodenitis. RECOMMENDATION: 1. Continue Protonix ip for 72 hours and then transition to q.12 hours. 2. Add Carafate suspension 1 g p.o. 4 times a day for 12 weeks. 3. Begin octreotide drip and continue for 72 hours and then transition to subcut injections only if there is evidence of active bleeding. 4. Check a stool antigen for H. pylori. 5. Monitor serial hemoglobin and hematocrit and transfuse as indicated. 6. Because the patient has a mechanical heart valve, I would resume low dose anticoagulation as soon as possible. 7. Begin a clear liquid diet. If she is doing well, on 08/18/2016 I would advance her diet to a full liquid diet. 8. Additional recommendations to follow based on her clinical course. cc: MD Ashok Salazar MD Hiteshri S. Bhavsar, MD MTDD
--- NOTE | 2016-08-18 21:04 | PROGRESS NOTE ---
DATE: 08/18/2016 SUBJECTIVE: The patient states that she is feeling much better from a GI standpoint. She has notably more shortness of breath today than before. She denies chest pain and states that this is her usual shortness of breath that occurs in the spring. OBJECTIVE: Vital signs: On exam, she is mildly tachypneic, but in no acute distress. Her blood pressure is 103/72, pulse 92, respirations 16, temperature of 98.6 degrees. HEENT: Negative for jaundice. Oropharyngeal mucosal membranes are slightly dry. Pulmonary: She has scattered inspiratory and expiratory wheezes. There are no rhonchi or rales heard. Cardiovascular: She has a regular rate and rhythm with no gallops or rubs. There is a mechanical heart valve sound that is appreciated. Abdominal: Exam reveals normoactive bowel sounds. The abdomen is soft and nontender, with no rebound or guarding. OBJECTIVE DATA: Remarkable for hemoglobin of 8.9 with hematocrit of 27 and a white count of 6.77. Her PT is 10.4 and INR 0.99. Sodium is 134, potassium 3.8, chloride 95, CO2 29, BUN 15, creatinine 0.5 with a glucose of 180. Calcium is 8.1, magnesium 1.8, total bilirubin 0.56. AST is 27, ALT 13, alkaline phosphatase 61, total protein 5.6, albumin 3.4. RECOMMENDATION: 1. Continue octreotide drip and Protonix drip. 2. Continue Carafate. 3. Begin Lovenox pending the resumption of her Coumadin therapy. 4. I would resume her Coumadin at low dose as she has a mechanical heart valve and is at risk for thromboembolic phenomenon. 5. From a GI perspective, she is improved. Therefore, I would advance her diet to a full liquid diet. Please continue advancing to a heart healthy diet as tolerated over the next 2-3 days. However, if her hemoglobin drops, I would not advance her diet as she may need re-evaluation from an endoscopic perspective. cc: MD Ashok Salazar MD Hiteshri S. Bhavsar, MD
[2016-08-18] MEDS ORDERED: LASIX IV ONE (21:34)
[2016-08-18] MEDS: LOVENOX SUBQ SCH (22:37)
[2016-08-19] MEDS: SANDOSTATIN 500 MICROGM in D5W 100 ML IV SCH ×3 (02:14→22:33)
[2016-08-19] MEDS: CARAFATE LIQUID PO SCH ×4 (02:14→21:13)
[2016-08-19] MEDS: DUONEB (A & A) INH SCH ×6 (03:31→23:00)
[2016-08-19] MEDS: VENTOLIN HFA INH SCH ×4 (03:51→23:24)
[2016-08-19] MEDS: MORPHINE IV PRN ×3 (04:02→18:30)
[2016-08-19] MEDS: ZOSYN 3.375 GM/NS 3.375 GM/50 ML IVPB IV SCH ×4 (04:03→22:23)
[2016-08-19] MEDS: PROTONIX 80 MG in NS 80 ML IV SCH ×2 (04:03→13:56)
[2016-08-19 05:28] LABS: BASO% 0.5 % (0.0-0.8); EOS# 0.19 X1000 (0.0-0.7); EOS% 1.2 % (0.0-10.0); HEMATOCRIT 26.3 % (37.0-47.0); HEMOGLOBIN 8.4 g/dL (12.0-16.0); IMM GRAN# 0.66 X1000 (0.0-0.04); LYMPH# 1.23 X1000 (1.2-3.4); LYMPH% 7.5 % (20.5-51.1); MANUAL DIFF NEEDED? YES; MCH 31.6 PG (27-31); MCHC 31.9 g/dL (33-37); MCV 98.9 FL (81-99); MONO% 11.5 % (1.7-9.3); MPV 8.9 FL (7.4-10.4); NEUT% 75.3 % (42.2-75.2); PLT 252 X1000 (130-400); RBC 2.66 XMIL (4.2-5.4)
[2016-08-19 05:42] LABS: LYMPHS 4 % (21-51); MONO 8 % (1-9)
[2016-08-19 05:51] LABS: AGAP 10; ALBUMIN 3.3 g/dL (3.5-5.0); ALKALINE PHOSPHATASE 56 U/L (32-104); BUN 6 mg/dL (8-22); CHLORIDE 92 mmol/L (98-107); COSMO 277; GOT 18 U/L (10-30); GPT 12 U/L (10-36); POTASSIUM 3.1 mmol/L (3.5-5.1); SODIUM 138 mmol/L (136-145); TCO2 36 mmol/L (25-35); TOTAL BILIRUBIN 0.86 mg/dL (0.20-1.00)
--- NOTE | 2016-08-19 08:20 | Diag Imaging Result Document ---
PROCEDURE NAME: CHEST-PORTABLE - 08/19/2016 SINGLE FRONTAL RADIOGRAPH OF THE CHEST: COMPARISON: 08/18/2016. FINDINGS: The right basilar infiltrate is unchanged. No new consolidation is identified. The cardiac silhouette is stable. IMPRESSION: Stable chest.
[2016-08-19] MEDS: LOVENOX SUBQ SCH (08:55)
[2016-08-19] MEDS: COLACE PO SCH (08:55)
--- NOTE | 2016-08-19 08:57 | Diag Imaging Result Document ---
PROCEDURE NAME: CHEST-PORTABLE - 08/18/2016 SINGLE FRONTAL RADIOGRAPH OF THE CHEST: COMPARISON: 08/16/2016. FINDINGS: There has been interval development of a consolidation at the right lung base. There may also be a small effusion. Increased interstitial markings are again noted bilaterally similar to the previous study. Cardiac silhouette is stable. IMPRESSION: Interval development of a right basilar consolidation.
[2016-08-19] MEDS: POTASSIUM CHLORIDE 20 MEQ/SWI 20 MEQ/100 ML IVPB IV SCH ×2 (11:36→13:56)
--- NOTE | 2016-08-19 12:14 | CONSULTATION ---
DATE OF CONSULTATION: 08/18/2016 TIME: 9:00 p.m. REQUESTING PHYSICIAN: Dr. Dayami Romero. REASON FOR CONSULTATION: Respiratory failure. HISTORY OF PRESENT ILLNESS: Ms. Kc is a 76-year-old, white female with a 50 pack year history for tobacco (nonsmoker times 1-2 years), and a history of a mechanical valve replacement who was admitted to the hospital on 08/16/2016 with Coumadin toxicity and anemia. The patient has a history of narcotic dependency and noncompliance in the past. The patient went for an EGD yesterday and the patient was found to have erosive gastritis and multiple AVMs in the body and fundus of the stomach, along with duodenitis and multiple erosions in the duodenum, along with a duodenal bulbar ulcer. Her anticoagulation was reversed. She has received 3 units of packed red blood cells and 3 units of fresh frozen plasma. She is routinely on 2 L of oxygen per nasal cannula. This evening, the patient complained of increasing shortness of breath and her oxygen saturation was 77% Pulmonary consultation was requested by Dr. Romero. PAST MEDICAL HISTORY/PROBLEM LIST: 1. COPD with a 50 pack year history for tobacco. 2. History of prior Coumadin toxicity. 3. Paroxysmal atrial fibrillation. 4. Status post mechanical aortic valve replacement in 1996. 5. 6. Status post hysterectomy. SOCIAL HISTORY: No alcohol use listed. She is . She lives with family. FAMILY HISTORY: Notable for sudden cardiac in a child in his 30s. REVIEW OF SYSTEMS: Noncontributory except for worsening dyspnea. PHYSICAL EXAMINATION: General: Reveals a frail, chronically ill-appearing, white female with a BMI of 18. Vital Signs: Blood pressure 103/72. Heart rate 92, respiration rate 16, oxygen saturation 96%. Temperature at 1549 today was 19.9. HEENT: Pupils are equal and reactive. Oropharynx is clear. Chest: Reveals crackles in both lung bases with prolonged expiratory phase. Cardiac Examination: Irregular rhythm. She has a crisp aortic click. Abdomen: Soft. Extremities: Cool to the touch. LABORATORIES: White blood count on admission yesterday was 37.7. White blood count today is 16.77, hemoglobin 8.9, platelet count 264,000. Chemistry: Sodium 134, potassium 3.8, chloride 95, bicarbonate 29, BUN 15, creatinine 0.5. CT scan of the abdomen and pelvis upon admission reveals a segment of small bowel thickening worrisome for focal enteritis, cholelithiasis, a nodule measuring 1.2 x 1.1 cm in the right lower lobe which was not present on 03/11/2016. IMPRESSION: A 76-year-old with possible enteritis, leukocytosis, low-grade fevers, acute hypoxemic respiratory failure, and pulmonary nodule which appears to be new from March. RECOMMENDATIONS: 1. With low-grade fever and leukocytosis, would continue her broad-spectrum antibiotics given the finding of enteritis on CT scan. 2. Repeat blood cultures. 3. Stat chest x-ray to evaluate lung parenchyma for acute respiratory failure. If the patient does not have evidence of fluid overload or aspiration pneumonia, then CT pulmonary angiogram will be considered. 4. Patient will require a full CT scan of the thorax since she has a new nodule in the right lower lobe. She will likely require a followup CT scan or a PET scan as an outpatient. 5. Anticoagulation per GI and cardiology. 6. Oxygen as needed to maintain saturation greater than 90%. 7. Additional recommendations pending hospital course. cc: Mirza Tellez MD
[2016-08-19] MEDS: NS 1,000 ML IV SCH (13:00)
--- NOTE | 2016-08-19 13:18 | PROGRESS NOTE ---
DATE: 08/19/2016 SUBJECTIVE: The patient is feeling better today. Appetite is still very poor. She denied having any fever or chills. Denies having any melena or hematochezia. Still complained of abdominal discomfort when she eats. OBJECTIVE: Vital Signs: Blood pressure 106/69, pulse of 75, respiration 18, temperature 98.3 degrees, sat 100% on 3 L of nasal cannula. General Appearance: Thin, white female in mild distress. HEENT: Anicteric. Clear conjunctivae. Neck: Supple. No JVD. No bruit. Cardiovascular: S1, S2. Normal rate and rhythm. No murmur, rubs, or gallops. Pulmonary: Clear to auscultation bilaterally. GI: Soft, nontender, nondistended. Normoactive bowel sounds. Musculoskeletal: No clubbing, cyanosis, or edema. LABORATORY: White count 16.46, hemoglobin 8.6, hematocrit of 26.3, platelets of 252,000. Sodium 138, potassium 3.1, chloride 92, bicarb 36, BUN 6, creatinine 0.5. Glucose 171. The patient had an EGD on day 18 that showed erosive gastritis, multiple nonbleeding AV malformation and duodenitis. ASSESSMENT/PLAN: A 76-year-old white female admitted to the hospital for upper gastrointestinal bleed. 1. GI bleed most likely upper and may be a combination of lower. The patient has received 3 packed red blood cells so far, and 3 of fresh frozen plasma. Hemoglobin and hematocrit seem to be stable. GI is following. She is status post EGD. Report as above. We have resumed her Coumadin and bridging her with Lovenox. 2. A mechanical valve. The patient is back on her Lovenox and warfarin. 3. Paroxysmal atrial fibrillation. We will continue her digoxin and diltiazem for rate control. 4. Gastritis and duodenitis. The patient is on Protonix drips. 5. Enteritis. We will keep the patient on Zosyn. We will DC vancomycin. CODE STATUS: The patient is a full code.
[2016-08-19] MEDS: ADVAIR 250/50 DISKUS INH SCH (19:25)
[2016-08-19] MEDS ORDERED: PROTONIX 80 MG in NS 80 ML IV ONE (20:53)
[2016-08-19] MEDS ORDERED: COUMADIN PO SCH (21:00)
[2016-08-19] MEDS: CARDIZEM CD PO SCH (21:13)
[2016-08-19] MEDS: RESTORIL PO SCH ×2 (21:13→22:21)
[2016-08-19] MEDS: LANOXIN PO SCH (21:14)
[2016-08-19 21:34] LABS: BASO% 0.3 % (0.0-0.8); EOS# 0.07 X1000 (0.0-0.7); EOS% 0.4 % (0.0-10.0); HEMATOCRIT 25.4 % (37.0-47.0); IMM GRAN# 0.34 X1000 (0.0-0.04); IMM GRAN% 2.1 % (0.0-0.5); LYMPH# 0.75 X1000 (1.2-3.4); LYMPH% 4.7 % (20.5-51.1); MANUAL DIFF NEEDED? YES; MCH 31.7 PG (27-31); MCHC 31.5 g/dL (33-37); MCV 100.8 FL (81-99); MONO# 1.58 X1000 (0.11-0.59); MONO% 9.9 % (1.7-9.3); MPV 9.4 FL (7.4-10.4); NEUT% 82.6 % (42.2-75.2); PLT 244 X1000 (130-400); RBC 2.52 XMIL (4.2-5.4)
[2016-08-19 21:37] LABS: INR 1.05; PROTIME 11.1 Seconds (9.2-11.7)
--- NOTE | 2016-08-19 21:50 | PROGRESS NOTE ---
DATE: 08/19/2016 SUBJECTIVE: The patient states that she feels better from a GI standpoint. She reports resolution of her abdominal pain since we began Protonix, octreotide and Carafate. However, she has been more short of breath today than usual. The nurse's note says she was placed on Lovenox for her mechanical heart valve, she has had melenic stools this evening. OBJECTIVE: Vital Signs: On examination, her blood pressure is 110/43, pulse 72, respirations 26, temp of 98.8 degrees. Abdomen: Soft and nontender. Pulmonary Examination: She has audible inspiratory and expiratory wheezes. Cardiovascular Examination: Reveals regular rate and rhythm with a mechanical heart sound. Lungs: On examination, she has audible wheezes which are heard in the room. No further examination was performed. Her abdomen is soft. She is able to press on her abdomen without tenderness which is an interval improvement from our initial evaluation. OBJECTIVE DATA: Reveals a hemoglobin of 8.4 with hematocrit of 26.3, a white count of 16.46, and 252,000 platelets from this morning. Her sodium is 138, potassium 3.1, chloride 92, CO2 36, BUN 6, creatinine 0.5, glucose 171. Calcium is 8.0, magnesium 1.5, total bilirubin 0.86, AST 18, ALT 12, alkaline phosphatase 56, total protein 6.0 and albumin 3.3. RECOMMENDATIONS: 1. In light of her bleeding, I spoke with Dr. Burrows from Cardiology. We will hold all anticoagulation for 72 hours and then reattempt to initiate her anticoagulation therapy as she has a mechanical heart valve. 2. I will continue the Protonix drip for an additional 72 hours. 3. She should remain on the octreotide drip for 72 hours. 4. Continue Carafate 1 g p.o. 4 times a day. 5. I will check a CBC stat and assess for interval change. We will transfuse as indicated based on her lab results. cc: MD Dayami Jean Baptiste MD Hiteshri S. Bhavsar, MD
[2016-08-19 21:58] LABS: BANDS 1 % (0-1); EOS 1 % (1-10); LYMPHS 8 % (21-51); MONO 3 % (1-9)
[2016-08-20] MEDS: PROTONIX 80 MG in NS 80 ML IV SCH ×3 (00:57→20:28)
[2016-08-20] MEDS: CARAFATE LIQUID PO SCH ×4 (02:35→20:28)
[2016-08-20] MEDS: DUONEB (A & A) INH SCH ×6 (03:30→23:34)
[2016-08-20] MEDS: ZOSYN 3.375 GM/NS 3.375 GM/50 ML IVPB IV SCH ×4 (04:10→23:24)
[2016-08-20] MEDS: MORPHINE IV PRN ×4 (04:11→17:49)
[2016-08-20] MEDS: VENTOLIN HFA INH SCH ×3 (05:09→23:12)
[2016-08-20 05:23] LABS: INR 1.03; PROTIME 10.8 Seconds (9.2-11.7)
[2016-08-20 05:36] LABS: BASO% 0.2 % (0.0-0.8); EOS# 0.16 X1000 (0.0-0.7); HEMATOCRIT 25.5 % (37.0-47.0); HEMOGLOBIN 8.1 g/dL (12.0-16.0); IMM GRAN# 0.28 X1000 (0.0-0.04); IMM GRAN% 1.8 % (0.0-0.5); LYMPH# 0.46 X1000 (1.2-3.4); MANUAL DIFF NEEDED? YES; MCH 32.1 PG (27-31); MCHC 31.8 g/dL (33-37); MCV 101.2 FL (81-99); MONO# 1.09 X1000 (0.11-0.59); MPV 9.3 FL (7.4-10.4); PLT 247 X1000 (130-400); RBC 2.52 XMIL (4.2-5.4)
[2016-08-20 05:40] LABS: AGAP 8; BUN 6 mg/dL (8-22); CALCIUM 8.2 mg/dL (8.8-10.2); CHLORIDE 96 mmol/L (98-107); COSMO 274; POTASSIUM 3.9 mmol/L (3.5-5.1); SODIUM 138 mmol/L (136-145); TCO2 34 mmol/L (25-35)
[2016-08-20 06:42] LABS: BANDS 8 % (0-1); EOS 2 % (1-10); LYMPHS 4 % (21-51); MONO 8 % (1-9)
[2016-08-20] MEDS: COLACE PO SCH (08:46)
[2016-08-20] MEDS: NS 1,000 ML IV SCH (08:48)
[2016-08-20] MEDS: SANDOSTATIN 500 MICROGM in D5W 100 ML IV SCH ×2 (08:48→19:07)
[2016-08-20] MEDS: LASIX IV SCH (13:21)
--- NOTE | 2016-08-20 13:28 | PROGRESS NOTE ---
DATE: 08/20/2016 SUBJECTIVE: The patient is doing about the same. She did have some blood in her stool again. OBJECTIVE: Vital signs: Blood pressure 160/90, pulse of 74, respirations 26, temperature 97.9 degrees, satting 100% on the Venturi mask. General appearance: Thin, white female in no acute distress. HEENT: Anicteric sclerae. Clear conjunctivae. Neck: Supple. No JVD. No bruit. Cardiovascular: S1, S2. Normal rate and rhythm. No murmur, rubs, or gallops. Pulmonary: Clear to auscultation bilaterally. GI: Soft, nontender, nondistended. Normoactive bowel sounds. Musculoskeletal: No clubbing, cyanosis, or edema. PLAN: A white count 15.47, hemoglobin 8.1, hematocrit of 25.5, platelets 247. Chemistry: Sodium 138, potassium 3.9, chloride 96, bicarbonate 34, BUN 6, creatinine 0.4, glucose of 119. ASSESSMENT AND PLAN: This is a 76-year-old, white female, admitted to the hospital for gastrointestinal bleed while on anticoagulation for her mechanical bowel. 1. Gastrointestinal bleed, maybe upper and lower gastrointestinal. Her INR was supratherapeutic when she came in. We tried to restart the patient back on her Lovenox to stop bleeding again. Gastroenterology discussed with cardiology and they want to hold it off for the next 72 hours. 2. Mechanical bowel as above. 3. Paroxysmal atrial fibrillation. She is on rate control with digoxin and diltiazem. 4. Gastritis and duodenitis. Continue Protonix. 5. Enteritis. The patient is on Zosyn.
[2016-08-20] MEDS: ADVAIR 250/50 DISKUS INH SCH ×2 (18:58→23:12)
[2016-08-20 19:46] LABS: BASO% 0.2 % (0.0-0.8); EOS# 0.04 X1000 (0.0-0.7); EOS% 0.3 % (0.0-10.0); HEMATOCRIT 27.2 % (37.0-47.0); HEMOGLOBIN 8.6 g/dL (12.0-16.0); IMM GRAN# 0.17 X1000 (0.0-0.04); IMM GRAN% 1.2 % (0.0-0.5); LYMPH# 0.62 X1000 (1.2-3.4); LYMPH% 4.5 % (20.5-51.1); MANUAL DIFF NEEDED? YES; MCHC 31.6 g/dL (33-37); MCV 101.1 FL (81-99); MONO% 5.8 % (1.7-9.3); MPV 9.4 FL (7.4-10.4); PLT 243 X1000 (130-400); RBC 2.69 XMIL (4.2-5.4)
[2016-08-20 19:59] LABS: EOS 1 % (1-10); LYMPHS 2 % (21-51); MONO 2 % (1-9); NRBC 1 % (0-0)
[2016-08-20] MEDS ORDERED: TYLENOL PO PRN (20:20)
[2016-08-20] MEDS: LANOXIN PO SCH (20:28)
[2016-08-20] MEDS: CARDIZEM CD PO SCH (20:28)
[2016-08-20] MEDS: RESTORIL PO SCH (20:28)
--- NOTE | 2016-08-20 20:34 | Diag Imaging Result Document ---
PROCEDURE NAME: SARA ABDOMEN - 08/20/2016 ABDOMEN, SINGLE VIEW: There are midline sutures overlying the pelvis. Prominent atherosclerosis. There are several distended loops of bowel believed to be the colon. No organomegaly. There are pelvic phleboliths. IMPRESSION: Distended colon which may represent a distal obstruction.
[2016-08-20] MEDS ORDERED: ZOFRAN IV PRN (22:01)
--- NOTE | 2016-08-20 22:55 | Diag Imaging Result Document ---
PROCEDURE NAME: ABDOMEN/PELVIS W/CONTRAST - 08/20/2016 CT ABDOMEN AND PELVIS WITH INTRAVENOUS CONTRAST: COMPARISON: 08/16/2016. FINDINGS: Interval development of right lower lobe pneumonia with atelectasis. There are small bilateral pleural effusions which have developed. The one on the right is larger than the one on the left. The gallbladder is distended and there is a 1.8 cm stone within it. No adjacent inflammation. Normal liver, spleen, pancreas, and adrenal glands. A 3.7 cm cyst arises from the kidney. No hydronephrosis. Prominent atherosclerosis. Oral contrast has passed through the bowel and fills the colon. The colon is distended throughout. The uterus is small. A Marx catheter has the urinary bladder decompressed. IMPRESSION: 1. Distended colon filled with fluid, but no obstruction. 2. Cholelithiasis. 3. Development of right lower lobe pneumonia with small effusions. 4. Prominent atherosclerosis. A preliminary report was given at 10:35 p.m.
[2016-08-21] MEDS: LASIX IV SCH (02:14)
[2016-08-21] MEDS: CARAFATE LIQUID PO SCH ×5 (02:16→19:46)
[2016-08-21] MEDS: DUONEB (A & A) INH SCH ×6 (03:00→22:59)
[2016-08-21 03:28] LABS: ALLEN TEST YES; BE 26.8 mmoll (-3.0-3.0); BLOOD TYPE ARTERIAL; DRAW SITE R RADIAL; METHB 2.1 % (0.0-1.5); MODALITY PRB; PO2(98.6) 55 mmHg (60-100); SAMPLE BLOOD; SAO2 95.1 % (95.0-100.0); THB 8.5 g/dL (11.5-17.4); pH(98.6) 7.48 (7.35-7.45)
[2016-08-21 03:32] LABS: PCO2(98.6) 72 mmHg (35-45)
[2016-08-21] MEDS: VENTOLIN HFA INH SCH ×4 (05:16→22:55)
[2016-08-21 05:49] LABS: INR 1.03; PROTIME 10.8 Seconds (9.2-11.7)
[2016-08-21 05:55] LABS: BASO% 0.2 % (0.0-0.8); EOS# 0.12 X1000 (0.0-0.7); HEMATOCRIT 28.2 % (37.0-47.0); HEMOGLOBIN 8.9 g/dL (12.0-16.0); IMM GRAN# 0.09 X1000 (0.0-0.04); IMM GRAN% 0.7 % (0.0-0.5); LYMPH# 0.37 X1000 (1.2-3.4); LYMPH% 2.9 % (20.5-51.1); MANUAL DIFF NEEDED? YES; MCH 31.7 PG (27-31); MCHC 31.6 g/dL (33-37); MCV 100.4 FL (81-99); MONO# 0.76 X1000 (0.11-0.59); MPV 9.5 FL (7.4-10.4); NEUT% 89.2 % (42.2-75.2); PLT 259 X1000 (130-400); RBC 2.81 XMIL (4.2-5.4)
[2016-08-21 06:14] LABS: AGAP 10; BUN 8 mg/dL (8-22); CALCIUM 8.4 mg/dL (8.8-10.2); CHLORIDE 87 mmol/L (98-107); COSMO 277; POTASSIUM 3.1 mmol/L (3.5-5.1); SODIUM 138 mmol/L (136-145); TCO2 41 mmol/L (25-35)
[2016-08-21] MEDS: ZOSYN 3.375 GM/NS 3.375 GM/50 ML IVPB IV SCH ×4 (06:26→23:31)
[2016-08-21] MEDS: PROTONIX 80 MG in NS 80 ML IV SCH ×2 (06:27→16:49)
[2016-08-21] MEDS: NS 1,000 ML IV SCH (06:27)
[2016-08-21] MEDS: SANDOSTATIN 500 MICROGM in D5W 100 ML IV SCH ×2 (06:27→16:49)
[2016-08-21 07:24] LABS: BANDS 6 % (0-1); LYMPHS 2 % (21-51); MONO 6 % (1-9)
--- NOTE | 2016-08-21 08:40 | Diag Imaging Result Document ---
PROCEDURE NAME: CHEST-PORTABLE - 08/21/2016 PORTABLE CHEST: COMPARISON: 08/19/2016. FINDINGS: Sternal wires are present. The heart remains enlarged. Development of a dense infiltrate in the midright lung. I believe there is also a tiny right effusion. Small infiltrates in the upper lungs persist. Mild worsening on the right. IMPRESSION: Overall interval worsening particularly in the midright lung.
[2016-08-21] MEDS: MORPHINE IV PRN ×4 (08:49→23:59)
[2016-08-21] MEDS: COLACE PO SCH (08:49)
[2016-08-21] MEDS: LEVAQUIN 750 MG/D5W 750 MG/150 ML IVPB IV SCH (09:02)
[2016-08-21] MEDS: MYLICON DROPS PO SCH ×2 (12:44→16:50)
[2016-08-21] MEDS: POTASSIUM CHLORIDE 20 MEQ/SWI 20 MEQ/100 ML IVPB IV SCH ×2 (14:43→16:50)
--- NOTE | 2016-08-21 15:29 | PROGRESS NOTE ---
DATE: 08/21/2016 SUBJECTIVE: The patient is feeling about the same. Still has melena overnight. No fever, no chills. OBJECTIVE: Vital Signs: Blood pressure 119/54, pulse of 80, respiration 27, temperature 98.1 degrees, saturations of 99% on a non-rebreather. General Appearance: Thin, cachectic, white female in mild distress. HEENT: Anicteric. Clear conjunctivae. Neck: Supple. No JVD. No bruits. Cardiovascular: S1, S2. Normal rate and rhythm. No murmur, rubs, or gallops. Pulmonary: Clear to auscultation bilaterally. GI: Slightly distended, but normoactive bowel sounds. Musculoskeletal: No clubbing, cyanosis, or edema. DIAGNOSTIC DATA: Her WBC is 12.57, hemoglobin 8.9, hematocrit of 28.2, platelets of 259,000. Chemistry: Sodium 138, potassium is 3.1, chloride 87, bicarb 41, BUN 8, creatinine 0.5, glucose 153. ASSESSMENT AND PLAN: This is a 76-year-old, white female admitted to the hospital for upper gastrointestinal bleed. 1. Upper gastrointestinal bleed. Her INR was supratherapeutic at that time. GI scope and this finds some gastritis and duodenitis. She on Protonix drips. We restarted her blood thinner but she started bleeding again and we had to hold her blood thinner and keep her on Protonix drips for the next 48 hours before we start her back on her blood thinner again. The patient is high risk for having a stroke. 2. Paroxysmal atrial fibrillation. The patient is on digoxin and diltiazem. 3. Mechanical aortic valve. The patient will need to be back on her blood thinner as soon as possible. 4. Enteritis. Continue Zosyn. 5. Code status. The patient is still a full code. She has not has not decided what she wants to do as far as the code status is concerned.
[2016-08-21] MEDS ORDERED: LASIX IV ONE (15:47)
[2016-08-21] MEDS: ADVAIR 250/50 DISKUS INH SCH ×2 (18:52→22:55)
[2016-08-21] MEDS: LANOXIN PO SCH ×2 (19:46→23:40)
[2016-08-21] MEDS: CARDIZEM CD PO SCH ×2 (19:47→23:40)
[2016-08-21] MEDS: RESTORIL PO SCH ×2 (19:47→23:41)
[2016-08-22] MEDS: SANDOSTATIN 500 MICROGM in D5W 100 ML IV SCH ×3 (02:31→23:03)
[2016-08-22] MEDS: CARAFATE LIQUID PO SCH ×5 (02:31→20:28)
[2016-08-22] MEDS: PROTONIX 80 MG in NS 80 ML IV SCH ×2 (02:32→12:05)
[2016-08-22] MEDS: NS 1,000 ML IV SCH ×2 (02:32→12:56)
[2016-08-22] MEDS: VENTOLIN HFA INH SCH ×3 (02:56→15:43)
[2016-08-22] MEDS: DUONEB (A & A) INH SCH ×6 (02:59→23:29)
[2016-08-22] MEDS: ZOSYN 3.375 GM/NS 3.375 GM/50 ML IVPB IV SCH ×4 (06:02→23:04)
[2016-08-22 06:20] LABS: INR 0.97; PROTIME 10.2 Seconds (9.2-11.7)
[2016-08-22 06:40] LABS: AGAP 8; BUN 11 mg/dL (8-22); CALCIUM 8.2 mg/dL (8.8-10.2); CHLORIDE 87 mmol/L (98-107); COSMO 275; POTASSIUM 3.1 mmol/L (3.5-5.1); SODIUM 136 mmol/L (136-145); TCO2 41 mmol/L (25-35)
[2016-08-22 07:21] LABS: BASO% 0.1 % (0.0-0.8); EOS% 2.1 % (0.0-10.0); HEMATOCRIT 25.7 % (37.0-47.0); IMM GRAN# 0.05 X1000 (0.0-0.04); IMM GRAN% 0.5 % (0.0-0.5); LYMPH# 0.41 X1000 (1.2-3.4); LYMPH% 4.2 % (20.5-51.1); MANUAL DIFF NEEDED? YES; MCH 31.4 PG (27-31); MCHC 31.1 g/dL (33-37); MCV 100.8 FL (81-99); MONO# 0.58 X1000 (0.11-0.59); MPV 9.7 FL (7.4-10.4); NEUT% 87.1 % (42.2-75.2); PLT 263 X1000 (130-400); RBC 2.55 XMIL (4.2-5.4)
[2016-08-22 08:06] LABS: BANDS 4 % (0-1); LYMPHS 4 % (21-51); MONO 6 % (1-9)
[2016-08-22] MEDS: MYLICON DROPS PO SCH ×3 (08:35→17:18)
[2016-08-22] MEDS: LEVAQUIN 750 MG/D5W 750 MG/150 ML IVPB IV SCH (08:36)
[2016-08-22] MEDS: COLACE PO SCH (08:36)
[2016-08-22] MEDS: MORPHINE IV PRN ×3 (09:02→17:22)
[2016-08-22] MEDS ORDERED: INFED IV ONE (12:28)
[2016-08-22] MEDS ORDERED: NS IV ONE (12:28)
[2016-08-22] MEDS ORDERED: INFED 25 MG in NS 25 ML IV ONE (12:28)
[2016-08-22] MEDS ORDERED: INFED 250 MG in NS 250 ML IV ONE (12:49)
--- NOTE | 2016-08-22 14:57 | PROGRESS NOTE ---
DATE: 08/22/2016 SUBJECTIVE: The patient is feeling better today. No fever. No chills. No nausea, vomiting, or diarrhea. OBJECTIVE: Vital signs: Blood pressure 109/38, pulse of 58, respirations 16, temperature 97.8 degrees, saturation of 99% on 2 L nasal cannula. General appearance: Well-developed, thin white female, in no acute distress. HEENT: Anicteric. Clear conjunctivae. Neck: Supple. No JVD. No bruit. Cardiovascular: S1, S2. Normal rate and rhythm. No murmurs, rubs, or gallops. Pulmonary: Clear to auscultation bilaterally. GI: Soft, nontender, nondistended. Normoactive bowel sounds. Musculoskeletal: No clubbing, cyanosis, or edema. ASSESSMENT AND PLAN: This is a 76-year-old with a mechanical valve, admitted for upper gastrointestinal bleed secondary to supratherapeutic INR. 1. Upper gastrointestinal bleed. GI scoped her and found to have gastritis and duodenitis. She has been on a Protonix drip. Dr. Bains is okay for the patient to be back on her blood thinner today. We will start the patient on Lovenox full dose and will start her on Coumadin tomorrow if her hemoglobin and hematocrit continue to hold up. 2. Atrial fibrillation. She is on digoxin and diltiazem for rate control. 3. Mechanical valve. Again, we will resume her blood thinner. 4. Enteritis and pneumonia. Will continue Zosyn and Levaquin. 5. Insomnia. Continue Restoril. 6. Code status. The patient still wants to be a full code.
[2016-08-22] MEDS: LOVENOX SUBQ SCH (17:18)
[2016-08-22] MEDS: RESTORIL PO SCH (20:27)
[2016-08-22] MEDS: CARDIZEM CD PO SCH (20:27)
[2016-08-22] MEDS: LANOXIN PO SCH (20:28)
[2016-08-22] MEDS: ADVAIR 250/50 DISKUS INH SCH (23:29)
[2016-08-23] MEDS: MORPHINE IV PRN ×3 (00:36→15:22)
[2016-08-23] MEDS: CARAFATE LIQUID PO SCH ×4 (02:31→20:47)
[2016-08-23] MEDS: LOVENOX SUBQ SCH ×2 (02:31→13:49)
[2016-08-23] MEDS: VENTOLIN HFA INH SCH ×3 (02:51→16:03)
[2016-08-23] MEDS: DUONEB (A & A) INH SCH ×6 (02:52→23:23)
[2016-08-23 05:05] LABS: MANUAL DIFF NEEDED? NO
[2016-08-23] MEDS: ZOSYN 3.375 GM/NS 3.375 GM/50 ML IVPB IV SCH ×3 (05:44→17:38)
[2016-08-23 05:47] LABS: BASO% 0.5 % (0.0-0.8); EOS% 4.6 % (0.0-10.0); HEMOGLOBIN 7.7 g/dL (12.0-16.0); IMM GRAN# 0.04 X1000 (0.0-0.04); IMM GRAN% 0.5 % (0.0-0.5); LYMPH# 0.56 X1000 (1.2-3.4); LYMPH% 6.4 % (20.5-51.1); MCHC 30.8 g/dL (33-37); MCV 100.8 FL (81-99); MONO# 1.03 X1000 (0.11-0.59); MONO% 11.7 % (1.7-9.3); MPV 9.4 FL (7.4-10.4); NEUT% 76.3 % (42.2-75.2); PLT 270 X1000 (130-400); RBC 2.48 XMIL (4.2-5.4)
[2016-08-23] MEDS: SANDOSTATIN 500 MICROGM in D5W 100 ML IV SCH (08:00)
[2016-08-23] MEDS: LEVAQUIN 750 MG/D5W 750 MG/150 ML IVPB IV SCH (08:00)
[2016-08-23] MEDS: COLACE PO SCH (08:01)
[2016-08-23] MEDS: MYLICON DROPS PO SCH ×3 (08:01→17:38)
--- NOTE | 2016-08-23 08:29 | Diag Imaging Result Document ---
PROCEDURE NAME: CHEST-PORTABLE - 08/23/2016 AP PORTABLE CHEST, 08/23/2016 AT 0500 HOURS: FINDINGS: There is cardiomegaly. There is ill-defined opacity in the right lung generally particularly in the perihilar region and lower lobe. There is some increased opacity in the perihilar region of the left upper lobe. The volume loss on the right which was present on 08/21/2016 appears to have improved somewhat. Otherwise, there has been no significant change. IMPRESSION: Cardiomegaly. Pulmonary edema. The possibility of superimposed pneumonia in the right lower lobe cannot be excluded.
[2016-08-23] MEDS: NS 1,000 ML IV SCH (11:37)
[2016-08-23] MEDS: PROTONIX IV SCH (15:22)
[2016-08-23] MEDS: SODIUM CHLORIDE 0.9% INJ SCH (15:22)
--- NOTE | 2016-08-23 18:13 | PROGRESS NOTE ---
DATE: 08/23/2016 SUBJECTIVE: This patient is feeling better but she is still having shortness of breath. She denies nausea, vomiting, diarrhea, constipation. She has been complaining of back pain. Apparently this has been chronic. She told me that she had been getting pain medication from the pain clinic before. OBJECTIVE: Vital Signs: Temperature 98.2, blood pressure 125/39, pulse 74, respiratory rate 20, O2 saturation 97% on a Ventimask. HEENT: Head normocephalic. No trauma. PERRLA. Neck: Supple. No JVD. No masses. Central trachea. Chest: Clear to auscultation. No wheezing. No rales. Cardiovascular: Irregularly irregular rate and rhythm. Abdomen: Soft, nontender, nondistended. No hepatosplenomegaly. Extremities: No edema. No clubbing. No cyanosis. Neurological Examination: The patient is alert and oriented x3. No focal neurological deficits. LABORATORY: WBC 8.7, hemoglobin 7.7, hematocrit 25, platelets 270,000. ASSESSMENT AND PLAN: 1. Upper GI bleed. Gastroenterology has scoped this patient and they found gastroenteritis and duodenitis. She has been on Protonix drip but I stopped it and I put this patient on Protonix twice a day. Also I have stopped the octreotide drip today. The hemoglobin decreased from 8 to 7.7. I will keep an eye on that but either way I will start this patient on Coumadin today. As per the records, she takes warfarin 7.5 p.o. daily. I started this patient on Warfarin 5 mg p.o. daily for now. I will monitor the INR. 2. Atrial fibrillation. She is on digoxin and diltiazem, and is rate controlled. I started today this patient on Coumadin. 3. Mechanical valve. Again I will reassume her blood thinner today. 4. Enteritis and right lower lobe pneumonia. Continue with Zosyn and Levaquin. 5. Insomnia. Continue with Restoril. 6. Chronic pain mostly her back. I will restart her home medication, she is on [place] 5. 7. Code status: Full code. 8. Today this patient is complaining of mild shortness of breath. We will continue with the same management for now. She is completely alert and oriented x3. I will start this patient today on warfarin given the fact that this patient has a mechanical valve and atrial fibrillation. cc: Justin Aggarwal MD
[2016-08-23] MEDS ORDERED: LEVAQUIN 500 MG/D5W 500 MG/100 ML IVPB IV SCH (19:30)
[2016-08-23] MEDS: ADVAIR 250/50 DISKUS INH SCH (19:35)
[2016-08-23] MEDS: LANOXIN PO SCH (20:47)
[2016-08-23] MEDS: NORCO-5 PO SCH (20:48)
[2016-08-23] MEDS: RESTORIL PO SCH (20:48)
[2016-08-23] MEDS: CARDIZEM CD PO SCH (20:48)
[2016-08-23] MEDS ORDERED: COUMADIN PO SCH (21:00)
--- NOTE | 2016-08-24 00:04 | PROGRESS NOTE ---
DATE: 08/23/2016 SUBJECTIVE: The patient states that she feels better today from a GI perspective. She notes less abdominal pain and bloating. She denies blood per stool. According to the nurse, she had a dark brown watery bowel movement today. She denies nausea with vomiting, as well as fever and chills. PHYSICAL EXAMINATION: General: She is resting comfortably in the bed. Vital Signs: Her blood pressure is 125/89, pulse 67, respirations 16, temperature 98.2 degrees. Pulmonary: She remains on a non-rebreather, with an oxygen saturation of 92%. Her lungs are clear to auscultation, with normal expiratory effort. Cardiovascular: Reveals an irregularly irregular rhythm, with a normal rate. Abdominal: Her abdomen reveals normoactive bowel sounds. The abdomen is soft, nontender, with no rebound or guarding. OBJECTIVE DATA: Remarkable for a hemoglobin of 7.7, with a hematocrit of 25, which represents an interval drop over the weekend. Her white count is 8.72, with 270,000 platelets. Chemistries are from 08/22/2016. The sodium is 136, potassium 3.1, chloride 87, CO2 of 41, BUN 11, creatinine of 0.5, with a glucose of 171 and a calcium of 8.2. Her stool H. pylori antigen is positive. IMPRESSION: 1. Gastrointestinal bleed. 2. Duodenal ulcer. 3. Gastric arteriovenous malformations. 4. H. pylori positivity. 5. Abdominal pain, improved. 6. Anemia. 7. Chronic obstructive pulmonary disease. 8. Mechanical heart valve, aortic. RECOMMENDATIONS: 1. The patient was placed on Lovenox 50 mg q.12 hours over the weekend. However , her hemoglobin is now starting to drop again. Therefore, I recommend underdosing for 5 days. This was discussed with Dr. Arthur from cardiology, who is in agreement. 2. The patient has an H. pylori infection. I will begin antibiotics. 3. Because of the need to treat her H. pylori infection, he recommends holding the Coumadin and maintaining Lovenox while she is on antibiotic treatment. 4. After 5 days, I would attempt to advance her Lovenox to full therapy. 5. Continue Protonix 40 mg IV q.12 hours. 6. Continue Carafate 1 g p.o. q.6 hours for 12 weeks, then stop. 7. Additional recommendations to follow based on her clinical course. cc: MD Marivel Salazar MD Luis N. Villanueva, MD James E. Boyle, MD William D. Denney, MD MTDD
[2016-08-24] MEDS: ZOSYN 3.375 GM/NS 3.375 GM/50 ML IVPB IV SCH ×5 (00:20→23:52)
[2016-08-24] MEDS ORDERED: NS 500 ML IV SCH (00:30)
[2016-08-24] MEDS: DUONEB (A & A) INH SCH ×6 (02:50→23:21)
[2016-08-24] MEDS: SODIUM CHLORIDE 0.9% INJ SCH ×2 (03:05→14:27)
[2016-08-24] MEDS: PROTONIX IV SCH ×2 (03:05→14:27)
[2016-08-24] MEDS: LOVENOX SUBQ SCH ×2 (03:06→14:27)
[2016-08-24] MEDS: CARAFATE LIQUID PO SCH ×4 (03:06→22:17)
[2016-08-24 05:39] LABS: MANUAL DIFF NEEDED? NO
[2016-08-24 05:59] LABS: BASO% 0.4 % (0.0-0.8); EOS# 0.35 X1000 (0.0-0.7); EOS% 4.7 % (0.0-10.0); HEMOGLOBIN 9.7 g/dL (12.0-16.0); IMM GRAN# 0.06 X1000 (0.0-0.04); IMM GRAN% 0.8 % (0.0-0.5); LYMPH# 0.75 X1000 (1.2-3.4); LYMPH% 10.1 % (20.5-51.1); MCH 30.7 PG (27-31); MCHC 31.3 g/dL (33-37); MCV 98.1 FL (81-99); MONO# 0.87 X1000 (0.11-0.59); MONO% 11.7 % (1.7-9.3); MPV 9.9 FL (7.4-10.4); NEUT% 72.3 % (42.2-75.2); PLT 283 X1000 (130-400); RBC 3.16 XMIL (4.2-5.4)
[2016-08-24] MEDS ORDERED: LOVENOX SUBQ SCH (06:00)
[2016-08-24 06:14] LABS: AGAP 10; BUN 8 mg/dL (8-22); CALCIUM 9.2 mg/dL (8.8-10.2); CHLORIDE 96 mmol/L (98-107); COSMO 284; POTASSIUM 3.6 mmol/L (3.5-5.1); SODIUM 143 mmol/L (136-145); TCO2 37 mmol/L (25-35)
[2016-08-24] MEDS ORDERED: POTASSIUM CHLORIDE 20% LIQUID PO ONE (08:03)
[2016-08-24] MEDS: LEVAQUIN 750 MG/D5W 750 MG/150 ML IVPB IV SCH (08:11)
[2016-08-24] MEDS: LASIX IV SCH ×2 (08:11→22:18)
[2016-08-24] MEDS: NORCO-5 PO SCH ×2 (08:12→22:17)
[2016-08-24] MEDS: COLACE PO SCH (08:12)
[2016-08-24] MEDS: MYLICON DROPS PO SCH ×3 (08:12→16:26)
[2016-08-24 09:31] LABS: INR 1.01; PROTIME 10.6 Seconds (9.2-11.7)
--- NOTE | 2016-08-24 10:06 | PROGRESS NOTE ---
DATE: 08/24/2016 CHIEF COMPLAINT: Shortness of breath, GI bleeding. SUBJECTIVE: Ms. Kc complains of low back pain. She is very short of breath. OBJECTIVE: Blood pressure is 123/48, temperature 98.1, pulse 70, respirations 24. She is awake. She is in distress. She is somewhat pale. HEENT is unremarkable. Chest: Diminished breath sounds at the bases. Heart sounds are irregularly irregular. Diastolic click noted. There is a systolic murmur. Abdomen is nontender. The back is very sore to palpation. Extremities showed decreased pulses, no edema. Neurologic: Moves all 4 extremities. She is alert. DIAGNOSTIC DATA: Sodium is 143, potassium 3.6, BUN is 8, creatinine 0.4. Hemoglobin is 9.7, platelet count is 283,000. IMPRESSION: 1. The patient presented with gastrointestinal bleeding. This has not been fully resolved. Dr. Romero is following. 2. The patient is status post aortic valve replacement. This is being managed with anticoagulation. However, due to the GI bleeding, the anticoagulation has been cut down. Whether or not this is a safe practice remains to be determined. At this point in time, the patient is very short of breath, and she has developed clinically and radiographically pulmonary edema. RECOMMENDATIONS: I would put the patient on Lasix IV twice a day. I would give her potassium supplements. I would get a followup echocardiogram to make sure that the prosthetic valve is not malfunctioning. We will discuss with pediatric physician assistant about strategies to deal with this condition. cc: MD EMELINA Bowen
[2016-08-24] MEDS: MORPHINE IV PRN ×3 (12:03→23:52)
[2016-08-24] MEDS: NS 1,000 ML IV SCH (12:03)
[2016-08-24] MEDS: AMOXIL PO SCH ×2 (14:27→22:16)
[2016-08-24] MEDS: BIAXIN PO SCH ×2 (14:27→22:41)
[2016-08-24] MEDS: PEPTO-BISMOL CHEW TAB PO SCH ×3 (14:28→22:16)
--- NOTE | 2016-08-24 15:15 | PROGRESS NOTE ---
DATE: 08/24/2016 SUBJECTIVE: This patient is feeling about the same compared with yesterday. She is still complaining of shortness of breath. She denies nausea, vomiting, diarrhea, or constipation. Also, she has been complaining of back pain, but this has been chronic. OBJECTIVE: Vital Signs: Temperature 98.6 degrees, pulse 71, respiratory rate 21, blood pressure 104/41, O2 saturation 96% on a Venturi mask. HEENT: Head normocephalic. No trauma. PERRLA. Neck: Supple. No JVD. No masses. Central trachea. Chest: Bilateral rales at the bases. No wheezing. Cardiovascular: Irregularly irregular rate and rhythm. Abdomen: Soft, nontender, nondistended. No hepatosplenomegaly. Extremities: No edema. No clubbing. No cyanosis. Neurological: The patient is alert and oriented x3. No focal deficits. She moves all 4 extremities. LABORATORY: WBC 7.4, hemoglobin 9.7, hematocrit 31, platelets 283,000. Sodium 143, potassium 3.6, chloride 96, bicarbonate 37, BUN 8, creatinine 0.4, glucose 111, calcium 9.2. ASSESSMENT AND PLAN: 1. Upper gastrointestinal bleed. Gastroenterology Department has scoped this patient, and they found gastroenteritis and duodenitis. She has been on Protonix. The hemoglobin yesterday decreased from 8 to 7.7, and she was transfused. Today, it is 9.7. I will continue with the same anticoagulation. We are going to hold the warfarin because this patient probably has Helicobacter pylori and, with the treatment, the INR can be either elevated or decreased. 2. Atrial fibrillation. She is on digoxin and diltiazem, and this patient is on anticoagulation with Lovenox. 3. Aortic mechanical valve. Again, this patient is on anticoagulation. 4. Enteritis and right lower lobe pneumonia. Continue with Zosyn and Levaquin. 5. Insomnia. Continue with Restoril. 6. Chronic pain, mostly in her back. I already restarted her home medications. She is on [place] 5. 7. Code status: Full code. CRITICAL CARE TIME: Thirty-five minutes. cc: Justin Aggarwal MD
--- NOTE | 2016-08-24 15:22 | PROGRESS NOTE ---
DATE: 08/24/2016 PRIMARY HOSPITALIST: Dr. Justin Aggarwal M.D. PRIMARY CARE PHYSICIAN: Dr. Marivel Strickland M.D. PRIMARY MANNEQUIN MOLDER: Dr. Brandon Coffey M.D. PRIMARY [place] OFFICE INSTRUCTOR: Dr. Mirza Tellez M.D. SUBJECTIVE: The patient states that she remains short of breath but she is better today. She denies abdominal pain, stating that her abdomen feels less distended and she denies abdominal pain per se. She is currently tolerating a full liquid diet but is requesting solid food. Her stools are loose and watery but are brown in color. She received 1 unit of packed red blood cells last night for a hemoglobin of 7.7. She corrected appropriately. She is currently receiving low-dose Lovenox therapy after discussion with the on-call cardiology team based on her drop in hemoglobin on full dose Lovenox. She had an echocardiogram done that was performed today. The results are pending. OBJECTIVE: Vital signs: On exam, her blood pressure is 104/41, pulse 71, respiration 21, temperature of 98.6 degrees. Her oxygen saturation is 96% on a 50% Venturi mask. Pulmonary: Lungs are clear to auscultation. The expiration phase is greater than the inspiratory phase, consistent with COPD. Cardiovascular: Irregularly irregular rhythm with a mechanical heart valve. Gastrointestinal: Her abdomen is soft, with normoactive bowel sounds. There is no rebound or guarding. OBJECTIVE DATA: Remarkable for a chest x-ray that reveals worsening pulmonary edema. However, the presence of a superimposed pneumonia in the right lower lobe could not be excluded. Her stool studies again are positive for H. pylori. RECOMMENDATION: 1. From a gastrointestinal perspective, she has had no bleeding overnight. I will continue to monitor the hemoglobin and hematocrit. 2. Because of her drop in hemoglobin, the on-call cardiology team recommended low-dose Lovenox for the next 2-3 days. I will discuss increasing her Lovenox to a therapeutic dose with Dr. Coffey. 3. I will begin triple therapy to treat her Helicobacter pylori infection. Please note that the Pepto-Bismol will turn her stool black. This is not suggestive of bleeding but rather an effect of the medication. The patient was informed. 4. Continue her current medications and supportive care. 5. Additional recommendations to follow based on her clinical course. cc: MD Justin Salazar MD James E. Boyle, MD Luis N. Villanueva, MD MTDD
[2016-08-24] MEDS: ADVAIR 250/50 DISKUS INH SCH (19:39)
[2016-08-24] MEDS: LANOXIN PO SCH (22:17)
[2016-08-24] MEDS: RESTORIL PO SCH (22:18)
[2016-08-24] MEDS: CARDIZEM CD PO SCH (22:18)
--- NOTE | 2016-08-24 22:30 | ECHO REPORT ---
ORDER DATE: 08/24/2016 MEASUREMENTS: Left ventricular end-diastolic diameter 4.2, end-systolic diameter 2.9. Posterior wall thickness 1.3. Septal thickness 1.1. SUMMARY: 1. Limited 2-dimensional echocardiography, with limited Doppler performed to evaluate mechanical aortic valve prosthesis and left ventricular ejection fraction. 2. Aortic valve has been replaced with a mechanical prosthesis, which appears to be well-seated. The peak gradient across the aortic valve prosthesis is 28 mmHg, with a mean gradient of 17 mmHg. This is similar to previous values obtained in August 2015, with peak gradient of 37 mmHg, and a mean gradient of 20 mmHg. In September 2013, the peak gradient across the valve was 49, with a mean gradient of 23. There is mild aortic insufficiency, which is probably perivalvular in location, although this is not well-defined. Mitral and tricuspid valves are without structural abnormality. The aortic root is normal in size. 3. Normal left ventricular chamber size, with mild concentric left hypertrophy is demonstrated. Estimated left ejection fraction is approximately 65%. No regional wall motion abnormalities are evident. [id number] biatrial enlargement is demonstrated. The right ventricle is of normal size, with preserved right ventricular systolic function. 4. No pericardial effusion. CONCLUSIONS: 1. Adequately-functioning mechanical aortic valve prosthesis, with mild aortic regurgitation, which is probably perivalvular in location. 2. Mild concentric left hypertrophy, with an estimated left ventricular ejection fraction of 65%. 3. [id number] biatrial enlargement. cc: MD Brandon Proctor MD
[2016-08-25] MEDS: DUONEB (A & A) INH SCH ×6 (03:40→23:25)
[2016-08-25 05:11] LABS: MANUAL DIFF NEEDED? NO
[2016-08-25 05:23] LABS: BASO% 0.3 % (0.0-0.8); EOS# 0.33 X1000 (0.0-0.7); EOS% 3.6 % (0.0-10.0); HEMATOCRIT 31.2 % (37.0-47.0); HEMOGLOBIN 9.7 g/dL (12.0-16.0); IMM GRAN# 0.13 X1000 (0.0-0.04); IMM GRAN% 1.4 % (0.0-0.5); LYMPH# 0.94 X1000 (1.2-3.4); LYMPH% 10.3 % (20.5-51.1); MCH 30.7 PG (27-31); MCHC 31.1 g/dL (33-37); MCV 98.7 FL (81-99); MONO# 1.04 X1000 (0.11-0.59); MONO% 11.4 % (1.7-9.3); MPV 9.9 FL (7.4-10.4); PLT 335 X1000 (130-400); RBC 3.16 XMIL (4.2-5.4)
[2016-08-25] MEDS: CARAFATE LIQUID PO SCH ×4 (05:41→22:22)
[2016-08-25] MEDS: ZOSYN 3.375 GM/NS 3.375 GM/50 ML IVPB IV SCH ×3 (05:42→17:05)
[2016-08-25] MEDS: LOVENOX SUBQ SCH ×2 (05:42→17:05)
[2016-08-25] MEDS: SODIUM CHLORIDE 0.9% INJ SCH ×2 (05:42→14:24)
[2016-08-25] MEDS: PROTONIX IV SCH ×2 (05:43→14:24)
[2016-08-25 05:50] LABS: INR 1.02; PROTIME 10.7 Seconds (9.2-11.7)
[2016-08-25 06:27] LABS: AGAP 12; BUN 9 mg/dL (8-22); CALCIUM 8.6 mg/dL (8.8-10.2); CHLORIDE 95 mmol/L (98-107); COSMO 283; POTASSIUM 3.4 mmol/L (3.5-5.1); SODIUM 142 mmol/L (136-145); TCO2 35 mmol/L (25-35)
[2016-08-25] MEDS: LASIX IV SCH ×2 (08:06→22:19)
[2016-08-25] MEDS: NORCO-5 PO SCH ×2 (08:06→22:21)
[2016-08-25] MEDS: COLACE PO SCH (08:06)
[2016-08-25] MEDS: AMOXIL PO SCH ×2 (08:06→22:19)
[2016-08-25] MEDS: LEVAQUIN 750 MG/D5W 750 MG/150 ML IVPB IV SCH (08:06)
[2016-08-25] MEDS: MYLICON DROPS PO SCH ×3 (08:06→17:05)
[2016-08-25] MEDS: PEPTO-BISMOL CHEW TAB PO SCH ×4 (08:06→22:20)
[2016-08-25] MEDS: BIAXIN PO SCH ×2 (08:06→22:20)
[2016-08-25] MEDS ORDERED: KLOR-CON PO ONE (08:19)
[2016-08-25] MEDS: MORPHINE IV PRN ×3 (10:01→18:54)
--- NOTE | 2016-08-25 10:41 | PROGRESS NOTE ---
DATE: 08/25/2016 SUBJECTIVE: This patient states that she is feeling a little bit better. She is still using the Venturi mask. When I evaluated this patient she was eating. She denies nausea, vomiting, chest pain. She is still complaining of mild shortness of breath. OBJECTIVE: Vital Signs: Temperature 98.2, pulse 110 on the monitor, respiratory rate 14, oxygen saturation 90 on a Venturi mask, 50% of oxygen flow. HEENT: Head normocephalic. No trauma. PERRLA. Neck: Supple. No JVD. No masses. Central trachea. Chest: Bilateral rales at the bases. No wheezing. Cardiovascular: Irregularly irregular rate and rhythm. Abdomen: Soft, nontender, nondistended. No hepatosplenomegaly. Extremities: No edema. No clubbing. No cyanosis. Neurological: The patient is alert and oriented x3. No focal deficits. She moves all 4 extremities. LABORATORY: WBC 9.1, hemoglobin 9.7, hematocrit 31.2, platelet 235,000. Sodium 142, potassium 3.4, chloride 95, bicarbonate 35, BUN 9, creatinine 0.5, glucose 116, calcium 8.6. ASSESSMENT AND PLAN: 1. Upper gastrointestinal bleed. This patient was transfused a couple days ago. Her hemoglobin increased from 7.7 to 9.7. Today the hemoglobin is the same compared with yesterday. Will continue to monitor the hemoglobin and hematocrit daily. This patient is on Lovenox twice a day and hopefully in a few days we can increase the dose to therapeutic anticoagulation. 2. Atrial fibrillation. She is on digoxin and diltiazem and this patient is on anticoagulation with Lovenox. Will monitor. 3. Helicobacter pylori. Gastroenterology department is on board. This patient is getting treatment for H. pylori. 4. Aortic mechanical valve. Again, this patient is on anticoagulation. 5. Enteritis and right lower lobe pneumonia. Continue with Zosyn and Levaquin. 6. Insomnia. Continue with Restoril. 7. Chronic pain, mostly in her back. I already restarted her home medications. She is on [place] 5. 8. Code status. Full code. CRITICAL CARE TIME: 35 minutes. cc: Justin Aggarwal MD
[2016-08-25] MEDS: NS 1,000 ML IV SCH (12:05)
[2016-08-25] MEDS ORDERED: CALMOSEPTINE OINTMENT TOP PRN (18:27)
[2016-08-25] MEDS: ADVAIR 250/50 DISKUS INH SCH (19:20)
[2016-08-25] MEDS: CARDIZEM CD PO SCH (22:20)
[2016-08-25] MEDS: RESTORIL PO SCH (22:20)
[2016-08-25] MEDS: LANOXIN PO SCH (22:21)
[2016-08-26] MEDS: ZOSYN 3.375 GM/NS 3.375 GM/50 ML IVPB IV SCH ×2 (01:00→06:43)
[2016-08-26] MEDS: CARAFATE LIQUID PO SCH ×4 (02:00→21:34)
[2016-08-26] MEDS: DUONEB (A & A) INH SCH ×6 (03:49→23:34)
[2016-08-26] MEDS: PROTONIX IV SCH ×2 (04:00→17:20)
[2016-08-26] MEDS: SODIUM CHLORIDE 0.9% INJ SCH ×2 (04:01→17:20)
[2016-08-26 05:23] LABS: MANUAL DIFF NEEDED? NO
[2016-08-26 05:26] LABS: BASO% 0.4 % (0.0-0.8); EOS% 3.4 % (0.0-10.0); HEMATOCRIT 31.6 % (37.0-47.0); HEMOGLOBIN 10.1 g/dL (12.0-16.0); IMM GRAN# 0.23 X1000 (0.0-0.04); IMM GRAN% 2.6 % (0.0-0.5); LYMPH# 0.91 X1000 (1.2-3.4); LYMPH% 10.2 % (20.5-51.1); MCH 31.6 PG (27-31); MCV 98.8 FL (81-99); MONO# 0.86 X1000 (0.11-0.59); MONO% 9.7 % (1.7-9.3); MPV 9.9 FL (7.4-10.4); NEUT% 73.7 % (42.2-75.2); PLT 359 X1000 (130-400)
[2016-08-26 05:48] LABS: AGAP 10; BUN 9 mg/dL (8-22); CALCIUM 8.8 mg/dL (8.8-10.2); CHLORIDE 95 mmol/L (98-107); COSMO 278; POTASSIUM 3.1 mmol/L (3.5-5.1); SODIUM 140 mmol/L (136-145); TCO2 35 mmol/L (25-35)
[2016-08-26] MEDS: LOVENOX SUBQ SCH ×2 (06:43→17:20)
[2016-08-26] MEDS: MORPHINE IV PRN ×3 (06:46→18:58)
--- NOTE | 2016-08-26 08:00 | Diag Imaging Result Document ---
PROCEDURE NAME: CHEST-2 VIEWS - 08/26/2016 CHEST X-RAY, 2 VIEWS: COMPARISON: 08/23/2016. FINDINGS: Stable significant cardiomegaly and COPD. There has probably been redistribution of the right pleural effusion towards the base. There is overall decrease in the diffuse bilateral interstitial infiltrates compatible with improving edema. There is a trace left pleural effusion as well. IMPRESSION: Significant improvement from prior, mainly in the pulmonary edema. The right lower lobe opacity is most likely a pleural effusion which has redistributed.
--- NOTE | 2016-08-26 08:51 | PROGRESS NOTE ---
DATE: 08/26/2016 CHIEF COMPLAINT: Shortness of breath, back pain. SUBJECTIVE: Mrs. Kc is feeling better today. She is not as short of breath as she was. Her back pain is not as bad. Her x-ray done this morning shows improvement of the pulmonary edema. She is still in atrial fibrillation. Rate appears to be controlled. OBJECTIVE: Vital signs: Her blood pressure is 128/49, temperature is 97.9, pulse 76, respirations 20. General: She is awake, alert, oriented, follows commands. She is taking a nebulizer treatment right now. HEENT: Neck veins not distended. Chest: Diminished breath sounds especially at the right base. Cardiac: Heart sounds are irregularly irregular. She has a normal diastolic click of a prosthetic aortic valve. Abdomen: Nontender, soft. Extremities: Decreased pulses, no obvious edema. Neurological: Follows commands, moves four extremities. BLOOD WORK: Hemoglobin 10.1, hematocrit 31.6, white count 8910. Sodium 140, potassium 3.1, BUN 9, creatinine 0.5. IMPRESSION: 1. Patient who presented with gastrointestinal bleeding. This will be monitored by the GI team. 2. History of aortic valve replacement. Right now, she is on an under-dose regimen of Lovenox per suggestion of GI and engagement mgr. 3. Chronic back pain. 4. Persistent atrial fibrillation. RECOMMENDATION: At this point in time, the patient's pulmonary edema is clearing up. This probably was secondary to fluid overload from multiple blood transfusions. We will continue IV Lasix. We will replace potassium. We will see how she does over the next 2 or 3 days. At some point, we really have to commit the patient to standard therapeutic doses of warfarin or we will risk the possibility of having the valve thrombose. We just did an echocardiogram on August 24 that shows that the valve is still working properly. We will see how she does. Thank you for the opportunity to participate in her evaluation. cc: Brandon Coffey MD
[2016-08-26] MEDS: MYLICON DROPS PO SCH ×3 (09:16→17:20)
[2016-08-26] MEDS: LASIX IV SCH ×2 (09:16→21:32)
[2016-08-26] MEDS: NORCO-5 PO SCH ×2 (09:17→21:34)
[2016-08-26] MEDS: AMOXIL PO SCH ×2 (09:17→21:59)
[2016-08-26] MEDS: POTASSIUM CHLORIDE 20% LIQUID PO SCH ×2 (09:17→22:00)
[2016-08-26] MEDS: PEPTO-BISMOL CHEW TAB PO SCH (09:17)
[2016-08-26] MEDS: BIAXIN PO SCH ×2 (09:17→21:32)
[2016-08-26] MEDS: COLACE PO SCH (09:17)
--- NOTE | 2016-08-26 10:23 | PROGRESS NOTE ---
DATE: 08/26/2016 SUBJECTIVE: This patient states that she is feeling better today. She is using a nasal cannula. She denies nausea, vomiting, or chest pain. Just mild shortness of breath. I will consult physical therapy for this patient. This patient was admitted with pneumonia. She already completed 10 days of Zosyn and 5 days of Levaquin. I will stop the medications today. The leukocytosis resolved. We have an x-ray that showed significant improvement, mainly in the pulmonary edema and the right lower lobe opacity is most likely a pleural effusion which has redistributed. No consolidation that we can appreciate at this moment. OBJECTIVE: Vital Signs: Temperature 97.9 degrees, pulse 76, respiratory rate 20, blood pressure 128/49, oxygen saturation 98 on 5 L of nasal cannula. HEENT: Head normocephalic. No trauma. PERRLA. Neck: Supple. No JVD. No masses. Central trachea. Chest: Bilateral rales at the bases. No wheezing. Cardiovascular: Irregularly irregular rate and rhythm. Increased 2nd sound. Abdomen: Soft, nontender, nondistended. No hepatosplenomegaly. Extremities: No edema. No clubbing. No cyanosis. Neurological Examination: The patient is alert and oriented x3. No focal neurological deficits. She moves all 4 extremities. Laboratory: WBC 8.9, hemoglobin 10.1, hematocrit 31.6, platelets 359,000. Sodium 140, potassium 3.1, chloride 95, bicarbonate 35, BUN 9, creatinine 0.5, glucose 104, calcium 8.8. ASSESSMENT AND PLAN: 1. Upper gastrointestinal bleed. This patient was transfused 3 days ago. The hemoglobin has been stable. We will continue to monitor the hemoglobin and hematocrit daily. This patient is on Lovenox twice a day and hopefully in a few days, we can increase the dose to therapeutic anticoagulation. Hopefully, we can restart also warfarin. For now, that was held because this patient has Helicobacter pylori treatment. Gastroenterology department already talked to cardiology. Warfarin can either increase or decrease with the Helicobacter pylori treatment. For now, it has been held. 2. Atrial fibrillation. She is on digoxin and diltiazem. This patient is on anticoagulation with Lovenox. We will monitor. 3. Helicobacter pylori. Gastroenterology department is on board. This patient is getting treatment for Helicobacter pylori. 4. Mechanical aortic valve. Again, this patient is on anticoagulation and we will monitor. 5. Enteritis and right lower lobe pneumonia. This patient completed 10 days of Zosyn and 5 days of Levaquin. I will stop this treatment today. X-ray did not show any evidence of pneumonia. This patient's diarrhea is improving. Also, she is getting treatment for Helicobacter pylori. 6. Insomnia. Continue with Restoril. 7. Chronic pain, mostly in her back. I already restarted her home medications. She is on [place] 5. 8. Code status. This patient is a full code. 9. Physical deconditioning. I will consult physical therapy. CRITICAL CARE TIME: 35 minutes. cc: Justin Aggarwal MD
[2016-08-26] MEDS: NS 1,000 ML IV SCH (13:51)
[2016-08-26] MEDS: BISMATROL PO SCH ×3 (13:57→21:35)
[2016-08-26] MEDS ORDERED: GOLYTELY PO ONE (19:22)
[2016-08-26] MEDS: ADVAIR 250/50 DISKUS INH SCH (20:10)
--- NOTE | 2016-08-26 20:31 | PROGRESS NOTE ---
DATE: 08/26/2016 SUBJECTIVE: The patient states that she is feeling better today. She reports less shortness of breath. They have been able to wean her from a Ventimask to 3 L per nasal cannula. She remains dyspneic but feels that she is doing somewhat better. Her primary GI concern is that she has low back pain and pressure. She reports resolution of the discomfort when she is able to defecate. She continues to struggle with diarrhea. There has been no evidence of recurrent bleeding from her duodenal ulcer which was diagnosed at the time of admission as the cause for her acute GI bleeding. OBJECTIVE: On examination, her blood pressure is 126/37 pulse 97, respiration 26-30, temperature of 98.2 degrees. On abdominal examination, her abdomen is soft and nontender. OBJECTIVE DATA: Reveals a hemoglobin of 10.1 with hematocrit of 31.6 and a white count of 8.91. Sodium is 140, potassium 3.1, chloride 95, CO2 35, BUN 9, creatinine 0.5 with a glucose 104. Her calcium is 8.8. RECOMMENDATIONS: 1. The patient has a duodenal ulcer which still has shown no stigmata of bleeding. Therefore, I recommend continuing Protonix 40 mg IV q.12 hours. 2. Continue Carafate suspension 1 g p.o. 4 times a day for total of 12 weeks of therapy. 3. Continue to monitor daily CBCs. 4. Because her hemoglobin has been stable for 72 hours I would advance her Lovenox to full dose therapy at 50 mg/kg q.12 hours. 5. To further evaluate the low back pain, the family has requested a colonoscopy. I do not feel that she is stable enough to undergo a traditional colonoscopy at this time. However, I will discuss with Radiology the possibility of performing a virtual colonoscopy while she is an inpatient versus performing it while she is an outpatient. 6. She was noted to have H. pylori infection on stool antigen testing. She remains on triple therapy for 14 days. She will need an outpatient Helicobacter pylori breath test to confirm eradication. 7. The patient reports diarrhea. Her studies have been negative for obvious infection. I will add Culturelle given that she is on multiple antibiotics. 8. 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 We will continue to monitor her clinical course. 9. Additional recommendations to follow based on her clinical course. cc: DayamiMD Justin Lovelace MD Hiteshri S. Bhavsar, MD Luis N. Villanueva, MD James E. Boyle, MD
[2016-08-26] MEDS: LANOXIN PO SCH ×2 (21:32→21:33)
[2016-08-26] MEDS: RESTORIL PO SCH (21:32)
[2016-08-26] MEDS: CARDIZEM CD PO SCH (21:32)
[2016-08-26] MEDS: CULTURELLE PO SCH (22:00)
[2016-08-27] MEDS: SODIUM CHLORIDE 0.9% INJ SCH ×2 (03:24→16:16)
[2016-08-27] MEDS: PROTONIX IV SCH ×2 (03:24→16:16)
[2016-08-27] MEDS: CARAFATE LIQUID PO SCH ×4 (03:24→19:57)
[2016-08-27] MEDS: DUONEB (A & A) INH SCH ×6 (04:44→23:30)
[2016-08-27 05:34] LABS: MANUAL DIFF NEEDED? NO
[2016-08-27 05:38] LABS: BASO% 0.4 % (0.0-0.8); EOS# 0.25 X1000 (0.0-0.7); EOS% 2.9 % (0.0-10.0); HEMATOCRIT 31.7 % (37.0-47.0); HEMOGLOBIN 9.7 g/dL (12.0-16.0); IMM GRAN# 0.27 X1000 (0.0-0.04); IMM GRAN% 3.2 % (0.0-0.5); LYMPH# 1.07 X1000 (1.2-3.4); LYMPH% 12.5 % (20.5-51.1); MCH 30.4 PG (27-31); MCHC 30.6 g/dL (33-37); MCV 99.4 FL (81-99); MONO# 0.86 X1000 (0.11-0.59); MONO% 10.1 % (1.7-9.3); MPV 9.9 FL (7.4-10.4); NEUT% 70.9 % (42.2-75.2); PLT 394 X1000 (130-400); RBC 3.19 XMIL (4.2-5.4)
[2016-08-27 05:56] LABS: AGAP 13; BUN 7 mg/dL (8-22); CALCIUM 8.6 mg/dL (8.8-10.2); CHLORIDE 99 mmol/L (98-107); COSMO 283; POTASSIUM 3.6 mmol/L (3.5-5.1); SODIUM 143 mmol/L (136-145); TCO2 31 mmol/L (25-35)
[2016-08-27] MEDS: MORPHINE IV PRN ×3 (07:21→17:02)
--- NOTE | 2016-08-27 08:49 | Diag Imaging Result Document ---
PROCEDURE NAME: COLOGRAPHY DXTIC - 08/27/2016 CT COLOGRAPHY : FINDINGS: Prone and supine images were obtained. Somewhat poor distention of the distal colon. There is fluid and debris within portions of the colon. There are diverticula in the distal colon. No distinct colonic mass or wall thickening. No adjacent inflammation. The patient is noted to have marked atherosclerosis. There are bilateral pleural effusions with nodules in the lower lungs. A Marx catheter has the urinary bladder decompressed. No renal stones. There is a 3.7 cm left renal cyst. IMPRESSION: Suboptimal exam with fluid and debris in the colon, but no mass or wall thickening identified.
[2016-08-27] MEDS: POTASSIUM CHLORIDE 20% LIQUID PO SCH ×2 (09:00→22:45)
[2016-08-27] MEDS: MYLICON DROPS PO SCH ×3 (09:00→16:16)
[2016-08-27] MEDS: CULTURELLE PO SCH ×3 (09:01→21:53)
[2016-08-27] MEDS: AMOXIL PO SCH ×3 (09:02→21:51)
[2016-08-27] MEDS: NORCO-5 PO SCH ×2 (09:03→19:59)
[2016-08-27] MEDS: BIAXIN PO SCH ×3 (09:03→21:51)
[2016-08-27] MEDS: LASIX IV SCH ×3 (09:04→21:52)
[2016-08-27] MEDS: LOVENOX SUBQ SCH ×3 (09:05→21:52)
[2016-08-27] MEDS: COLACE PO SCH (09:06)
[2016-08-27] MEDS: BISMATROL PO SCH ×5 (09:23→21:53)
[2016-08-27 10:04] LABS: ALLEN TEST YES; BE 12.2 mmoll (-3.0-3.0); BLOOD TYPE ARTERIAL; DRAW SITE L RADIAL; METHB 1.7 % (0.0-1.5); O2(CT) 13.9 mL/dL (15.0-23.0); PCO2(98.6) 46 mmHg (35-45); PO2(98.6) 51 mmHg (60-100); SAMPLE BLOOD; SAO2 91.7 % (95.0-100.0); THB 11.2 g/dL (11.5-17.4); pH(98.6) 7.51 (7.35-7.45)
[2016-08-27 10:06] LABS: MODALITY CANNULA
--- NOTE | 2016-08-27 14:14 | PROGRESS NOTE ---
DATE: 08/27/2016 SUBJECTIVE: This patient just came back from a CT scan. As per the patient, apparently she also had a virtual colonoscopy, pending results. She is not complaining today of shortness of breath, and she is answering all my questions properly. OBJECTIVE: Vital Signs: Temperature 98.1 degrees, pulse 76, respiratory rate 19, blood pressure 116/45. Oxygen saturation 97% on room air. HEENT: Head normocephalic. No trauma. PERRLA. Neck supple. No JVD. No masses. Central trachea. Chest: Bilateral rales at the bases. No wheezing. Cardiovascular: Irregularly rate and rhythm. Increased second sound. Abdomen soft, nontender, nondistended. No hepatosplenomegaly. Extremities: No edema. No clubbing. No cyanosis. Neurologic. The patient is alert and oriented x3. No focal neurological deficits. LABORATORY: WBC 8.5, hemoglobin 9.7, hematocrit 31.7, platelets 394,000. Sodium 143, potassium 3.6, chloride 99, bicarbonate 31. BUN 7, creatinine 0.5, glucose 105, calcium 8.6. ASSESSMENT AND PLAN: 1. Upper gastrointestinal bleed. This patient has a duodenal ulcer, but the hemoglobin and hematocrit have been stable. We will continue with proton pump inhibitors and also monitoring this patient daily. 2. Atrial fibrillation. She is on digoxin and diltiazem. This patient is on anticoagulation with Lovenox. We will monitor. The reason why we have been holding the warfarin is because this patient is having treatment for Helicobacter pylori, and there is an increased risk of a supratherapeutic INR if we combined the treatment. 3. Helicobacter pylori. Gastroenterology department is on board. Continue with the same management. 4. Mechanical aortic valve. Again, this patient is on anticoagulation. Will monitor. 5. Enteritis and right lower lobe pneumonia. This patient received 10 days of Zosyn and 5 days of Levaquin. I stopped this treatment already. 6. Insomnia. Continue with Restoril. 7. Chronic pain. Continue with home medication. 8. CODE STATUS: Patient is FULL CODE. 9. Physical deconditioning. Continue with physical therapy. CRITICAL CARE TIME: 30 minutes. cc: Justin Aggarwal MD
[2016-08-27] MEDS: NS 1,000 ML IV SCH (16:20)
[2016-08-27] MEDS: ADVAIR 250/50 DISKUS INH SCH (19:40)
[2016-08-27] MEDS: CARDIZEM CD PO SCH ×2 (19:58→21:53)
[2016-08-27] MEDS: LANOXIN PO SCH ×2 (19:58→21:52)
--- NOTE | 2016-08-27 20:37 | PROGRESS NOTE ---
DATE: 08/27/2016 SUBJECTIVE: Patient states she is she is feeling better today. She underwent a CT virtual colonoscopy that revealed fluid in the colonic lumen but no masses or polyps. Clinically, she is doing better today. Her vital signs are stable. Her hemoglobin is stable at 9.7. RECOMMENDATIONS: 1. Resume regular diet. 2. Continue current management. 3. Continue full dose anticoagulation. 4. Complete course of antibiotics for H pylori infection. 5. Resume Coumadin once the course of antibiotics for H. pylori has been complete per Cardiology. 6. Additional Recommendations to follow based on her clinical course. cc: Justin Aggarwal MD MTDD
[2016-08-28] MEDS: DUONEB (A & A) INH SCH ×6 (03:00→23:35)
[2016-08-28] MEDS: SODIUM CHLORIDE 0.9% INJ SCH ×2 (04:45→15:25)
[2016-08-28] MEDS: CARAFATE LIQUID PO SCH ×4 (04:45→20:16)
[2016-08-28] MEDS: MORPHINE IV PRN ×4 (04:45→20:17)
[2016-08-28] MEDS: PROTONIX IV SCH ×2 (04:45→15:25)
[2016-08-28 04:57] LABS: MANUAL DIFF NEEDED? NO
[2016-08-28 05:00] LABS: BASO% 0.7 % (0.0-0.8); EOS# 0.23 X1000 (0.0-0.7); EOS% 3.3 % (0.0-10.0); HEMATOCRIT 33.9 % (37.0-47.0); HEMOGLOBIN 10.6 g/dL (12.0-16.0); IMM GRAN# 0.23 X1000 (0.0-0.04); IMM GRAN% 3.3 % (0.0-0.5); LYMPH# 0.93 X1000 (1.2-3.4); LYMPH% 13.5 % (20.5-51.1); MCH 31.2 PG (27-31); MCHC 31.3 g/dL (33-37); MCV 99.7 FL (81-99); MONO# 0.65 X1000 (0.11-0.59); MONO% 9.4 % (1.7-9.3); MPV 9.7 FL (7.4-10.4); NEUT% 69.8 % (42.2-75.2); PLT 390 X1000 (130-400)
[2016-08-28 05:22] LABS: AGAP 11; BUN 8 mg/dL (8-22); CALCIUM 8.9 mg/dL (8.8-10.2); CHLORIDE 102 mmol/L (98-107); COSMO 283; POTASSIUM 4.1 mmol/L (3.5-5.1); SODIUM 143 mmol/L (136-145); TCO2 30 mmol/L (25-35)
[2016-08-28] MEDS: MYLICON DROPS PO SCH ×3 (08:20→17:40)
[2016-08-28] MEDS: BIAXIN PO SCH ×2 (08:21→20:23)
[2016-08-28] MEDS: NORCO-5 PO SCH ×2 (08:21→23:34)
[2016-08-28] MEDS: BISMATROL PO SCH ×4 (08:21→20:16)
[2016-08-28] MEDS: AMOXIL PO SCH ×2 (08:22→20:23)
[2016-08-28] MEDS: COLACE PO SCH (08:22)
[2016-08-28] MEDS: CULTURELLE PO SCH ×2 (08:22→20:24)
[2016-08-28] MEDS: LASIX IV SCH ×2 (08:23→20:17)
[2016-08-28] MEDS: LOVENOX SUBQ SCH ×2 (08:23→20:17)
--- NOTE | 2016-08-28 12:11 | PROGRESS NOTE ---
DATE: 08/28/2016 SUBJECTIVE: The patient notes that she is feeling much better. She is tolerating drinking without any difficulty. Denies any current pain. Denies any blood in her stool. Denies any cough, congestion. Denies any shortness of breath. OBJECTIVE: Vital Signs: On physical, temp 97.5, pulse 80, respiratory rate 18, BP 122/49, satting 96% on 2.5 L. General: Patient is awake, alert. She is confused at times, but appears her baseline. Neck: Supple. CV: Regular rate. Positive murmur. Chest: Relatively clear. No apparent wheezing. Abdomen: Soft, nondistended. No masses. No hepatosplenomegaly. Positive bowel sounds. Extremities: Moves all extremities. No edema. No clubbing or cyanosis. Neurologic: Patient is awake, alert, oriented. She has no focal deficits currently. LABS: Hemoglobin and hematocrit 10 and 33. CMP essentially normal. ASSESSMENT: 1. Hypokalemia, resolved. 2. Anemia stable at 10 and 33. 3. Upper gastrointestinal bleed with a duodenal ulcer, stable. No current bleeding. 4. Atrial fibrillation. Continue diltiazem and digoxin. She is currently anticoagulated with Lovenox. 5. Mechanical heart valve. Patient currently is on Lovenox. She certainly will need to transition back to Coumadin. The previous note by gastroenterology had suggested waiting until Helicobacter pylori treatment had completed. I will re-discuss with gastroenterology that this may not be in the patient's best interest. We will continue Lovenox today. Certainly after a couple of days of treatment if she is stable should start adding Coumadin as it usually takes 3, 4 or 5 days for Coumadin to become therapeutic. 6. Right lower lobe pneumonia appears to be improving. PLAN: Thirty minutes has been spent in critical care management. Patient is improving. Her pulmonary edema is resolving. We will continue her current medications as noted. Certainly may need to add Coumadin. We will transition her to the floor. Further orders as needed. cc: Tomas Cedeno MD
--- NOTE | 2016-08-28 12:54 | Diag Imaging Result Document ---
PROCEDURE NAME: CHEST-1 VIEW - 08/28/2016 ONE VIEW CHEST: COMPARISON: 08/26/2016. FINDINGS: There is cardiomegaly similar to the previous exam. There are COPD changes. There is apparent mild infiltrate at the superior perihilar region on the right, but infiltrate on the right appears overall decreased. There is a small right pleural effusion which has decreased. There is stable left lower lung nodular density. There is no pneumothorax seen. IMPRESSION: Stable cardiomegaly. COPD. Overall decrease in infiltrate on the right. Decrease in right pleural effusion. Stable left lower lung nodular density.
[2016-08-28] MEDS: NS 1,000 ML IV SCH (15:33)
[2016-08-28] MEDS: LANOXIN PO SCH (20:21)
[2016-08-28] MEDS: CARDIZEM CD PO SCH (20:23)
[2016-08-28] MEDS: ADVAIR 250/50 DISKUS INH SCH (20:23)
[2016-08-29] MEDS: CARAFATE LIQUID PO SCH ×4 (03:20→20:58)
[2016-08-29] MEDS: SODIUM CHLORIDE 0.9% INJ SCH ×2 (03:20→15:56)
[2016-08-29] MEDS: PROTONIX IV SCH ×2 (03:20→15:56)
[2016-08-29] MEDS: MORPHINE IV PRN ×3 (03:28→15:55)
[2016-08-29] MEDS: DUONEB (A & A) INH SCH ×5 (03:35→19:14)
[2016-08-29 05:42] LABS: AGAP 11; BUN 15 mg/dL (8-22); CALCIUM 9.1 mg/dL (8.8-10.2); CHLORIDE 99 mmol/L (98-107); COSMO 284; POTASSIUM 3.9 mmol/L (3.5-5.1); SODIUM 142 mmol/L (136-145); TCO2 32 mmol/L (25-35)
[2016-08-29] MEDS: BISMATROL PO SCH ×4 (08:08→21:00)
[2016-08-29] MEDS: MYLICON DROPS PO SCH ×3 (08:09→16:43)
[2016-08-29] MEDS: CULTURELLE PO SCH ×2 (08:09→21:00)
[2016-08-29] MEDS: COLACE PO SCH (08:09)
[2016-08-29] MEDS: AMOXIL PO SCH ×2 (08:10→20:59)
[2016-08-29] MEDS: BIAXIN PO SCH ×2 (08:11→20:59)
[2016-08-29] MEDS: LASIX IV SCH (08:11)
[2016-08-29] MEDS: LOVENOX SUBQ SCH ×2 (08:11→21:02)
[2016-08-29] MEDS: NORCO-5 PO SCH ×2 (08:13→21:01)
--- NOTE | 2016-08-29 11:36 | PROGRESS NOTE ---
DATE: 08/29/2016 SUBJECTIVE: Patient notes that she is feeling better. States she is eating breakfast. She has not been sleeping well. She is asking if she can have her Restoril back. Other than that, she has no real complaints. Denies any bleeding. Denies any cough and congestion. OBJECTIVE: Vital signs: Temperature 97.9, pulse 68, respiratory 20, BP 125/44, saturation 97% on 2.5 L. General: Patient is an awake, alert, elderly female who appears her stated age. She is pleasant to talk with. Neck: Supple. CV: Regular rate. Chest: Relatively clear. Abdomen: Soft. Extremities: Moves all extremities. Neurologic: No changes. Skin: Warm and dry. No rashes. ASSESSMENT: 1. Upper gastrointestinal bleed. The patient has a duodenal ulcer. She has not had any bleeding recently. She continues on a proton pump inhibitor. She also has Helicobacter pylori for which she is on bismuth, Amoxil, and Biaxin. She seems to be tolerating this. 2. Atrial fibrillation. She is currently on digoxin and diltiazem. Tolerating well. 3. Mechanical heart valve. She is on Lovenox 50 q.12. She has not been on her Coumadin secondary to the GI bleed. However, at this point as she has had no bleeding, certainly will start her back on Coumadin as this will take several days to become steady state, as she needs to be 2.5 to 3.5. 4. Insomnia. Will continue her Restoril. 5. Enteritis. 6. Right lower lobe pneumonia. Continue antibiotics. 7. Will move her from the down to a regular floor. cc: Tomas Cedeno MD
[2016-08-29] MEDS: NS 1,000 ML IV SCH (11:46)
--- NOTE | 2016-08-29 12:41 | PROGRESS NOTE ---
DATE: 08/29/2016 CHIEF COMPLAINT: Weakness, shortness of breath, irregular heartbeat. SUBJECTIVE: Ms. Kc is breathing much better. Overall she has improved. Her chest x-ray done yesterday shows improvement of the infiltration of the lungs. The pulmonary edema is receding. She is eating better. She is sleeping better. OBJECTIVE: Vital signs: Blood pressure is 107/52, temperature 98.2, pulse 73, respirations 20. She is awake, alert and oriented. She is eating her lunch. She looks much improved compared to previous visits. HEENT is unremarkable. Chest shows better breath sounds bilaterally. No definite rales noted today. Heart sounds are irregularly irregular. There is a closing click of prosthetic mechanical valve. Abdomen is nontender. Extremities showed no edema. Neurologic: Moves all 4 extremities. DIAGNOSTIC DATA: Blood work today shows sodium 142, potassium 3.9, BUN is 15, creatinine 0.5. IMPRESSION: 1. The patient is with mechanical aortic valve, who has been anticoagulated for a long time, and the anticoagulation had to be stopped due to gastrointestinal bleeding. Thus far, no complications have taken place specifically related to clotting of the valve or embolization. 2. Congestive heart failure. This was probably diastolic heart failure, acute, due to fluid overload and multiple blood transfusions. 3. Persistent/permanent atrial fibrillation. 4. History of chronic back pain. 5. Anemia secondary to recurrent gastrointestinal bleeding. RECOMMENDATIONS: At this point in time, the patient is much better. She can probably be transferred to Medical Floor. Warfarin has been reinstated. I am going to switch her Lasix to oral Lasix plus spironolactone and see how she does. Her most recent INR is not from today. It was actually done several days ago. We will go ahead and request a followup ProTime and INR, actually this was requested already by Dr. Cedeno. We will continue to follow her. Thank you for the opportunity to participate in her evaluation. Best regards. cc: Brandon Coffey MD
[2016-08-29] MEDS: ALDACTONE PO SCH (13:26)
[2016-08-29] MEDS: ADVAIR 250/50 DISKUS INH SCH (19:14)
[2016-08-29] MEDS: LANOXIN PO SCH (21:00)
[2016-08-29] MEDS ORDERED: COUMADIN PO SCH (21:00)
[2016-08-29] MEDS: CARDIZEM CD PO SCH (21:00)
[2016-08-29] MEDS: RESTORIL PO PRN (21:11)
[2016-08-30] MEDS: ADVAIR 250/50 DISKUS INH SCH ×2 (00:17→19:23)
[2016-08-30] MEDS: DUONEB (A & A) INH SCH ×6 (00:18→19:23)
[2016-08-30] MEDS: SODIUM CHLORIDE 0.9% INJ SCH ×2 (01:25→14:37)
[2016-08-30] MEDS: CARAFATE LIQUID PO SCH ×4 (01:25→20:34)
[2016-08-30] MEDS: PROTONIX IV SCH ×3 (01:25→14:37)
[2016-08-30 05:07] LABS: HEMOGLOBIN 10.7 g/dL (12.0-16.0); MCH 32.5 PG (27-31); MCHC 32.4 g/dL (33-37); MCV 100.3 FL (81-99); MPV 9.7 FL (7.4-10.4); RBC 3.29 XMIL (4.2-5.4)
[2016-08-30 05:19] LABS: AGAP 9; ALBUMIN 3.2 g/dL (3.5-5.0); ALKALINE PHOSPHATASE 66 U/L (32-104); BUN 13 mg/dL (8-22); CALCIUM 9.3 mg/dL (8.8-10.2); CHLORIDE 102 mmol/L (98-107); COSMO 283; GOT 15 U/L (10-30); GPT 13 U/L (10-36); MAGNESIUM 2.1 mg/dL (1.5-2.7); POTASSIUM 3.6 mmol/L (3.5-5.1); SODIUM 142 mmol/L (136-145); TCO2 31 mmol/L (25-35); TOTAL BILIRUBIN 0.33 mg/dL (0.20-1.00); TOTAL PROTEIN 6.4 g/dL (6.3-8.3)
[2016-08-30] MEDS: MORPHINE IV PRN ×4 (06:41→20:45)
[2016-08-30 07:47] LABS: INR 1.01; PROTIME 10.6 Seconds (9.2-11.7)
[2016-08-30] MEDS: CULTURELLE PO SCH ×2 (08:00→20:35)
[2016-08-30] MEDS: LASIX PO SCH (08:00)
[2016-08-30] MEDS: NORCO-5 PO SCH (08:00)
[2016-08-30] MEDS: BIAXIN PO SCH ×2 (08:00→20:35)
[2016-08-30] MEDS: AMOXIL PO SCH ×2 (08:01→20:35)
[2016-08-30] MEDS: COLACE PO SCH (08:01)
[2016-08-30] MEDS: ALDACTONE PO SCH (08:01)
[2016-08-30] MEDS: MYLICON DROPS PO SCH ×3 (08:02→16:52)
[2016-08-30] MEDS: BISMATROL PO SCH ×4 (08:02→20:36)
[2016-08-30] MEDS: LOVENOX SUBQ SCH ×2 (08:05→20:35)
[2016-08-30] MEDS ORDERED: PERCOCET-5 PO PRN (08:55)
[2016-08-30] MEDS: NS 1,000 ML IV SCH (11:02)
[2016-08-30] MEDS: PERCOCET-5 PO PRN ×2 (13:12→19:06)
--- NOTE | 2016-08-30 15:41 | PROGRESS NOTE ---
DATE: 08/30/2016 SUBJECTIVE: The patient is sitting up in bed. She states that she feels okay today. No acute events were noted overnight. OBJECTIVE: Vital Signs: Temperature 98 degrees, blood pressure 117/55, heart rate 66, respirations 18, O2 saturation is 99% on 2.5 L nasal cannula. General: This is an elderly female, sitting up in bed, in no acute distress. Head: Normocephalic, atraumatic. Heart: S1, S2. Normal. Lungs: Clear to auscultation bilaterally. No crackles. No rales. Abdomen: Positive bowel sounds. Soft, nontender, nondistended. Extremities: No edema. No cyanosis. No calf tenderness. Neurologic: The patient is alert and oriented x3. LABS: White blood cell count 5.7, hemoglobin 10, hematocrit 33, platelets 405, 000. INR 1. Sodium 142, potassium 3.6, chloride 102, CO2 31, BUN 13, creatinine 0.5, glucose 97. ASSESSMENT AND PLAN: 1. Upper gastrointestinal bleed secondary to a duodenal ulcer. Continue on the proton pump inhibitor. 2. Helicobacter pylori infection. Continue on Biaxin, Amoxil, and bismuth. 3. Atrial fibrillation. The patient is currently rate controlled. Continue on diltiazem and digoxin. 4. Mechanical aortic valve replacement. Continue on Lovenox plus Coumadin. The patient's goal INR is between 2.5 and 3.5. Will monitor the INR closely while on biaxin since it will cause the INR to be supratherapeutic. 5. Chronic obstructive pulmonary disease. Stable. Continue on bronchodilator therapy and supplemental oxygen. 6. Right lower lobe pneumonia, improving. Continue on IV antibiotic therapy. 7. Continue with physical therapy. 8. The patient is stable for transfer to the medical floor. cc: Emily Bloom MD [facility]
[2016-08-30] MEDS: CARDIZEM CD PO SCH (20:35)
[2016-08-30] MEDS: LANOXIN PO SCH (20:36)
[2016-08-30] MEDS: RESTORIL PO PRN (20:45)
[2016-08-30] MEDS ORDERED: COUMADIN PO SCH (21:00)
[2016-08-31] MEDS: MORPHINE IV PRN ×3 (01:56→12:30)
[2016-08-31] MEDS: CARAFATE LIQUID PO SCH ×4 (01:56→21:31)
[2016-08-31] MEDS: SODIUM CHLORIDE 0.9% INJ SCH ×2 (03:42→15:56)
[2016-08-31] MEDS: PROTONIX IV SCH ×2 (03:42→15:56)
[2016-08-31] MEDS: ADVAIR 250/50 DISKUS INH SCH ×3 (04:48→22:39)
[2016-08-31] MEDS: DUONEB (A & A) INH SCH ×6 (04:48→22:39)
[2016-08-31 05:10] LABS: INR 0.99; PROTIME 10.4 Seconds (9.2-11.7)
[2016-08-31] MEDS: PERCOCET-5 PO PRN ×3 (05:17→21:30)
[2016-08-31 05:23] LABS: AGAP 9; BUN 14 mg/dL (8-22); CALCIUM 8.9 mg/dL (8.8-10.2); CHLORIDE 103 mmol/L (98-107); COSMO 285; POTASSIUM 3.5 mmol/L (3.5-5.1); SODIUM 143 mmol/L (136-145); TCO2 31 mmol/L (25-35)
[2016-08-31] MEDS: BISMATROL PO SCH ×4 (08:00→21:34)
[2016-08-31] MEDS: CULTURELLE PO SCH ×2 (08:00→21:30)
[2016-08-31] MEDS: MYLICON DROPS PO SCH ×3 (08:00→16:00)
[2016-08-31] MEDS: COLACE PO SCH (08:01)
[2016-08-31] MEDS: LASIX PO SCH (08:01)
[2016-08-31] MEDS: ALDACTONE PO SCH (08:01)
[2016-08-31] MEDS: BIAXIN PO SCH ×2 (08:01→21:29)
[2016-08-31] MEDS: AMOXIL PO SCH ×2 (08:02→21:29)
[2016-08-31] MEDS: LOVENOX SUBQ SCH ×2 (08:03→21:31)
--- NOTE | 2016-08-31 08:18 | Diag Imaging Result Document ---
PROCEDURE NAME: CHEST-2 VIEWS - 08/31/2016 FRONTAL AND LATERAL CHEST, TWO VIEWS: COMPARISON: Compared to 08/28/2016. FINDINGS: The lungs are hyperexpanded. There is increased AP diameter to the chest. Sternal wires are present. There are small pleural effusions. There are several lung nodules. IMPRESSION: 1. Emphysema. 2. Cardiomegaly. 3. There are bilateral lung nodules.
[2016-08-31] MEDS ORDERED: COUMADIN PO ONE ×2 (10:11→21:00)
[2016-08-31 12:27] LABS: MANUAL DIFF NEEDED? NO
--- NOTE | 2016-08-31 12:44 | PROGRESS NOTE ---
DATE: 08/31/2016 SUBJECTIVE: The patient states that she is feeling better today. She has been ambulatory in the room, able to go to the restroom. She is also sitting up in the chair on a regular basis throughout the day. She reports that she continues to have loose stools but is concerned because she is continuing to receive a stool softener. Overnight, she had 3 bowel movements. She denies nausea with vomiting or abdominal pain. She is currently tolerating her diet. OBJECTIVE: On exam, her blood pressure is 136/46, pulse of 86, respiration 21, temperature of 98.6 degrees. Pulmonary Exam: Lungs are clear to auscultation with a few scattered end expiratory wheezes. Cardiovascular Examination: She is irregularly irregular. Abdominal Exam: Reveals normoactive bowel sounds. The abdomen is soft and nontender. OBJECTIVE DATA: Remarkable for PT of 10.4 with an INR 0.99. Her sodium is 143, potassium 3.5, chloride 103, CO2 31, BUN 14, creatinine 0.5 with a glucose of 96. Calcium is 8.9. No CBC was performed. RECOMMENDATION: 1. I will obtain a CBC today. 2. Continue current management with Protonix. 3. Complete antibiotic course for the treatment of H. pylori. 4. Discontinue Colace stool softener. Monitor for constipation and/or diarrhea. 5. Additional recommendations to follow based on her clinical course. cc: MD Marivel Salazar MD Katherine Takundwa, MD
[2016-08-31 12:59] LABS: BASO% 1.1 % (0.0-0.8); EOS# 0.18 X1000 (0.0-0.7); EOS% 2.2 % (0.0-10.0); HEMATOCRIT 36.4 % (37.0-47.0); HEMOGLOBIN 11.3 g/dL (12.0-16.0); IMM GRAN# 0.18 X1000 (0.0-0.04); IMM GRAN% 2.2 % (0.0-0.5); LYMPH# 1.96 X1000 (1.2-3.4); LYMPH% 23.7 % (20.5-51.1); MCH 31.3 PG (27-31); MCV 100.8 FL (81-99); MONO# 1.02 X1000 (0.11-0.59); MONO% 12.3 % (1.7-9.3); MPV 9.8 FL (7.4-10.4); NEUT% 58.5 % (42.2-75.2); PLT 475 X1000 (130-400); RBC 3.61 XMIL (4.2-5.4)
[2016-08-31] MEDS ORDERED: COUMADIN PO SCH (21:00)
[2016-08-31] MEDS: LANOXIN PO SCH (21:29)
[2016-08-31] MEDS: CARDIZEM CD PO SCH (21:30)
[2016-08-31] MEDS: RESTORIL PO PRN (21:30)
--- NOTE | 2016-08-31 21:40 | PROGRESS NOTE ---
DATE: 08/31/2016 SUBJECTIVE: The patient states that she feels really good today. No acute events overnight. OBJECTIVE: Vital Signs: Temperature 98.2 degrees, blood pressure 107/50, heart rate 72, respirations 18, O2 saturations 97% on 2 L nasal cannula. General: This is an elderly female, lying in bed, in no acute distress. Head: Normocephalic. Atraumatic. Heart: S1, S2. Normal. Regular rate and rhythm. Lungs: Clear to auscultation bilaterally. Abdomen: Positive bowel sounds. Soft, nontender, nondistended. Extremities: No edema. No cyanosis. No calf tenderness. Neurologic: The patient is alert and oriented x3. No focal neurologic deficits noted. LABORATORY: White blood cell count 8.2, hemoglobin 11, hematocrit 36, platelets 475,000. INR is 0.9, sodium 143, potassium 3.5, chloride 103, CO2 31, BUN 14, creatinine 0.5, glucose 96, calcium 8.9. ASSESSMENT AND PLAN: 1. Gastrointestinal bleed, resolved. 2. Duodenal ulcer. Continue on the proton pump inhibitor. 3. H. pylori infection. Continue on Biaxin, Amoxil and bismuth . 4. Atrial fibrillation is rate controlled. Continue on diltiazem and digoxin. 5. Mechanical aortic valve replacement. Continue on Lovenox plus Coumadin. We will give the patient 7.5 mg Coumadin tonight. Continue to monitor the INR daily. The goal INR is between 2.5 and 3.5. 6. Chronic obstructive pulmonary disease. Stable. Continue on bronchodilator therapy and supplemental oxygen. 7. Pneumonia. Improved. Continue on IV antibiotic therapy. 8. Continue with physical therapy. 9. Disposition. The patient will be discharged home once her INR is in therapeutic range. cc: Emily Bloom MD
[2016-09-01] MEDS: DUONEB (A & A) INH SCH ×6 (03:22→22:44)
[2016-09-01] MEDS: CARAFATE LIQUID PO SCH ×4 (04:00→19:54)
[2016-09-01] MEDS: PROTONIX IV SCH ×2 (06:09→17:35)
[2016-09-01] MEDS: PERCOCET-5 PO PRN ×3 (06:13→17:34)
[2016-09-01 07:41] LABS: INR 1.02; PROTIME 10.7 Seconds (9.2-11.7)
[2016-09-01 07:43] LABS: BASO% 0.9 % (0.0-0.8); EOS# 0.15 X1000 (0.0-0.7); EOS% 2.7 % (0.0-10.0); HEMATOCRIT 33.4 % (37.0-47.0); HEMOGLOBIN 10.4 g/dL (12.0-16.0); IMM GRAN# 0.16 X1000 (0.0-0.04); IMM GRAN% 2.9 % (0.0-0.5); LYMPH# 0.92 X1000 (1.2-3.4); LYMPH% 16.5 % (20.5-51.1); MANUAL DIFF NEEDED? NO; MCH 31.5 PG (27-31); MCHC 31.1 g/dL (33-37); MCV 101.2 FL (81-99); MONO# 0.71 X1000 (0.11-0.59); MONO% 12.7 % (1.7-9.3); MPV 9.9 FL (7.4-10.4); NEUT% 64.3 % (42.2-75.2); PLT 452 X1000 (130-400)
[2016-09-01 07:45] LABS: AGAP 12; BUN 12 mg/dL (8-22); CALCIUM 9.1 mg/dL (8.8-10.2); CHLORIDE 99 mmol/L (98-107); COSMO 286; POTASSIUM 3.7 mmol/L (3.5-5.1); SODIUM 144 mmol/L (136-145); TCO2 33 mmol/L (25-35)
[2016-09-01] MEDS: BISMATROL PO SCH ×4 (08:57→20:04)
[2016-09-01] MEDS: MYLICON DROPS PO SCH ×3 (08:58→17:36)
[2016-09-01] MEDS: LOVENOX SUBQ SCH ×2 (09:00→20:26)
[2016-09-01] MEDS: LASIX PO SCH (09:00)
[2016-09-01] MEDS: ALDACTONE PO SCH (09:00)
[2016-09-01] MEDS: AMOXIL PO SCH ×2 (09:00→20:00)
[2016-09-01] MEDS: BIAXIN PO SCH ×2 (09:00→20:00)
[2016-09-01] MEDS: CULTURELLE PO SCH ×2 (09:00→20:01)
[2016-09-01] MEDS: MORPHINE IV PRN ×3 (09:07→19:50)
[2016-09-01] MEDS ORDERED: COUMADIN PO ONE ×2 (09:10→21:00)
--- NOTE | 2016-09-01 09:19 | Diag Imaging Result Document ---
PROCEDURE NAME: CT THORAX W/O CONTRAST - 09/01/2016 CT CHEST WITHOUT CONTRAST: FINDINGS: There is a small right sided pleural effusion measuring 12 mm posteriorly and inferiorly in the midline. No left effusion. The heart is enlarged. Prominent atherosclerosis. The ascending aorta is dilated to 4.7 cm. Mildly prominent mediastinal lymph nodes. The patient has severe emphysema. There are several scattered noncalcified nodules bilaterally. Left upper lobe area measures 5 x 21 mm. Posteriorly in the right lung image 41 is a 12 x 10 mm nodule. In the midright lung on image 63 is a 16 x 18 mm nodule. Laterally in the lower right lung on image 85 is a 14 x 15 mm nodule. There are large calcified areas inferiorly in the left lung. IMPRESSION: 1. Scattered calcified granuloma in addition to noncalcified nodules. 2. 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 3. Cardiomegaly. 4. Small right effusion. 5. Emphysema.
--- NOTE | 2016-09-01 13:02 | PROGRESS NOTE ---
DATE: 09/01/2016 SUBJECTIVE: The patient is sitting up in bed. She states that she feels a lot better today. No acute events noted overnight. OBJECTIVE: Vital Signs: Temperature 97.8 degrees, blood pressure 129/45, heart rate 62, respirations 20, O2 saturations 97% on 2.5 L nasal cannula. General: This is an elderly female, sitting up in bed, in no acute distress. Head: Normocephalic atraumatic. Heart: S1, S2. Normal. Regular rate and rhythm. Lungs: Equal air bilaterally. No rales. No rhonchi. No crackles. Abdomen: Positive bowel sounds. Soft, nontender, nondistended. Extremities: No edema. No cyanosis. No calf tenderness. Neurologic: The patient is alert and oriented x3. LABS: White blood cell count 5.5, hemoglobin 10, hematocrit 33, platelets 452,000. Sodium 144, potassium 3.7, chloride 99, CO2 33, BUN 12, creatinine 0.4. Glucose 84. INR 1.0. ASSESSMENT AND PLAN: 1. Gastrointestinal bleed. Resolved. 2. Duodenal ulcers. Continue on Protonix and Carafate. 3. H. pylori infection. Continue on the triple therapy. This is day 9 of 14. 4. Atrial fibrillation. Rate controlled. Continue on digoxin and diltiazem. 5. Mechanical aortic valve replacement. Continue on Lovenox and Coumadin. Will give the patient another dose of Coumadin 7.5 mg tonight. 6. Chronic obstructive pulmonary disease. Stable. 7. Pneumonia. Resolved. 8. Continue with physical therapy. 9. Disposition. The patient will be discharged to rehab once her INR is therapeutic. cc: Emily Bloom MD
[2016-09-01] MEDS: SODIUM CHLORIDE 0.9% INJ SCH (17:35)
[2016-09-01] MEDS: ADVAIR 250/50 DISKUS INH SCH (19:16)
[2016-09-01] MEDS: CARDIZEM CD PO SCH (20:01)
[2016-09-01] MEDS: LANOXIN PO SCH (20:02)
[2016-09-01] MEDS: RESTORIL PO PRN (20:15)
--- NOTE | 2016-09-01 21:15 | PROGRESS NOTE ---
DATE: 09/01/2016 PRIMARY HOSPITALIST: Emily Bloom M.D. SUBJECTIVE: The patient states that she feels much better and much stronger. She denies GI pain and rectal bleeding. She reports a good appetite and notes that she has had no difficulty over the last few days. OBJECTIVE: Vital signs: On exam, blood pressure is 105/50, pulse 76, respiration 19, temperature of 97.9 degrees. Abdomen: Is soft, nontender, with no rebound or guarding. OBJECTIVE DATA: Remarkable for hemoglobin of 10.4 with hematocrit of 33.4, and a white count of 5.58. Her platelet count is 452,000. Her INR remained subtherapeutic. RECOMMENDATION: 1. The patient is currently receiving Coumadin and Lovenox. Her INR remained subtherapeutic. She has had no bleeding on full dose Lovenox therapy. I would recommend advancing her Coumadin as you are currently doing. From a Gastroenterology perspective, I would continue her treatment course for Carafate for a full 12 weeks. She should remain on omeprazole 40 mg orally once she is discharged as an outpatient. 2. I would have her return to clinic in 4 weeks to assess interval progress. 3. Dr. Caceres and Maria R are covering our service. I will be out of the office, returning Tuesday, September 08. Please feel free to contact us if you have any additional questions. We will be available by page. cc: MD Emily Salazar MD MTDJusto
[2016-09-02] MEDS: PERCOCET-5 PO PRN ×4 (01:42→22:29)
[2016-09-02] MEDS: CARAFATE LIQUID PO SCH ×4 (02:35→21:46)
[2016-09-02] MEDS: DUONEB (A & A) INH SCH ×6 (03:54→23:05)
[2016-09-02] MEDS: PROTONIX IV SCH ×2 (05:31→18:42)
[2016-09-02] MEDS: SODIUM CHLORIDE 0.9% INJ SCH ×2 (05:31→18:43)
[2016-09-02] MEDS: MORPHINE IV PRN ×3 (05:36→18:41)
[2016-09-02 07:05] LABS: HEMATOCRIT 32.9 % (37.0-47.0); HEMOGLOBIN 10.1 g/dL (12.0-16.0); MCH 31.5 PG (27-31); MCHC 30.7 g/dL (33-37); MCV 102.5 FL (81-99); MPV 9.7 FL (7.4-10.4); RBC 3.21 XMIL (4.2-5.4)
[2016-09-02 07:16] LABS: INR 1.01; PROTIME 10.6 Seconds (9.2-11.7)
[2016-09-02 07:18] LABS: AGAP 11; BUN 18 mg/dL (8-22); CALCIUM 9.1 mg/dL (8.8-10.2); CHLORIDE 98 mmol/L (98-107); COSMO 285; POTASSIUM 3.7 mmol/L (3.5-5.1); SODIUM 141 mmol/L (136-145); TCO2 32 mmol/L (25-35)
[2016-09-02] MEDS: LASIX PO SCH (08:11)
[2016-09-02] MEDS: LOVENOX SUBQ SCH ×2 (08:11→21:50)
[2016-09-02] MEDS: AMOXIL PO SCH ×2 (08:11→21:46)
[2016-09-02] MEDS: CULTURELLE PO SCH ×2 (08:11→21:49)
[2016-09-02] MEDS: ALDACTONE PO SCH (08:11)
[2016-09-02] MEDS: BIAXIN PO SCH ×2 (08:11→21:47)
[2016-09-02] MEDS: MYLICON DROPS PO SCH ×3 (08:14→18:43)
[2016-09-02] MEDS: BISMATROL PO SCH ×4 (08:14→21:58)
--- NOTE | 2016-09-02 12:59 | PROGRESS NOTE ---
DATE: 09/02/2016 SUBJECTIVE: The patient is sitting up in bed. She has no complaints today. OBJECTIVE: Vital Signs: Temperature 97.9 degrees, blood pressure 112/45, heart rate 86, respirations 19, O2 saturation 99% on 2.5L nasal cannula. General: This is an elderly female, lying in bed in no acute distress. HEENT: Head normocephalic, atraumatic. Heart: S1 and S2 normal. Regular rate and rhythm. Lungs: Clear to auscultation bilaterally. No wheezing. No rales. No rhonchi. Abdomen: Positive bowel sounds. Soft, nontender, nondistended. Extremities: No edema. No cyanosis. No calf tenderness. Neurologic: The patient is alert and oriented x3. LABORATORIES: White blood cell count 7.5, hemoglobin 10, hematocrit 32, platelets 454,000. INR 1. Sodium 141, potassium 3.7, chloride 98, CO2 of 32, BUN 18, creatinine 0.5, glucose 124. ASSESSMENT AND PLAN: 1. Gastrointestinal bleed. Resolved. 2. Duodenal ulcers. Continue on Protonix and Carafate. 3. Helicobacter pylori infection. Continue on triple therapy. This is day 10 of 14. 4. Atrial fibrillation. Continue on digoxin and diltiazem plus Coumadin. 5. Mechanical aortic valve replacement. Continue on Lovenox and Coumadin. Will give the patient 10 mg of Coumadin tonight. Will continue to monitor the INR daily. 6. Chronic obstructive pulmonary disease. Stable. 7. Pneumonia. Resolved. 8. Continue with physical therapy. 9. Disposition: The patient will be discharged to rehabilitation once her INR is therapeutic. cc: Emily Bloom MD
[2016-09-02] MEDS: ADVAIR 250/50 DISKUS INH SCH (19:24)
[2016-09-02] MEDS ORDERED: COUMADIN PO ONE (21:00)
[2016-09-02] MEDS: CARDIZEM CD PO SCH (21:48)
[2016-09-02] MEDS: LANOXIN PO SCH (21:50)
[2016-09-02] MEDS: RESTORIL PO PRN (21:59)
[2016-09-03] MEDS: CARAFATE LIQUID PO SCH ×4 (02:51→20:53)
[2016-09-03] MEDS: MORPHINE IV PRN ×3 (03:01→18:34)
[2016-09-03] MEDS: DUONEB (A & A) INH SCH ×6 (03:26→22:48)
[2016-09-03] MEDS: PROTONIX IV SCH ×2 (05:49→18:31)
[2016-09-03 06:56] LABS: INR 1.12; PROTIME 11.8 Seconds (9.2-11.7)
[2016-09-03] MEDS: PERCOCET-5 PO PRN ×3 (07:56→21:02)
[2016-09-03] MEDS: BIAXIN PO SCH ×2 (10:05→20:56)
[2016-09-03] MEDS: BISMATROL PO SCH ×4 (10:12→20:56)
[2016-09-03] MEDS: CULTURELLE PO SCH ×2 (10:12→20:56)
[2016-09-03] MEDS: ALDACTONE PO SCH (10:12)
[2016-09-03] MEDS: LASIX PO SCH (10:12)
[2016-09-03] MEDS: AMOXIL PO SCH ×2 (10:12→20:55)
[2016-09-03] MEDS: MYLICON DROPS PO SCH ×3 (10:13→18:32)
[2016-09-03] MEDS: LOVENOX SUBQ SCH ×2 (10:13→20:53)
--- NOTE | 2016-09-03 15:34 | PROGRESS NOTE ---
DATE: 09/03/2016 SUBJECTIVE: The patient is sitting up in bed. She has no complaints. No acute events noted overnight. OBJECTIVE: Vital Signs: Temperature is 97.8, blood pressure 129/51, heart rate 54, respirations 18, O2 saturations 98% on 2 L nasal cannula. General: This is an elderly female, lying in bed, in no acute distress. Head: Normocephalic, atraumatic. Heart: S1, S2 normal. Regular rate and rhythm. Lungs: Clear to auscultation bilaterally. Abdomen: Positive bowel sounds. Soft, nontender, nondistended. Extremities: No edema. No cyanosis. Neurologic: The patient is alert and oriented x3. LABS: INR 1.12. ASSESSMENT AND PLAN: 1. Gastrointestinal bleed. Resolved. 2. Duodenal ulcers. Continue on Protonix and Carafate. 3. Helicobacter pylori infection. Continue on triple therapy. This is day 11 of 14. 4. Mechanical aortic valve replacement. We will give the patient 10 mg of Coumadin tonight. Continue on Lovenox. Will repeat the INR in the morning. 5. Chronic obstructive pulmonary disease. Stable. 6. Atrial fibrillation. Continue on digoxin and diltiazem. 7. Pneumonia. Resolved. 8. Continue with physical therapy. DISPOSITION: The patient will be discharged home with home health once her INR is therapeutic. cc: Emily Bloom MD MTDD
[2016-09-03] MEDS: SODIUM CHLORIDE 0.9% INJ SCH (18:31)
[2016-09-03] MEDS: ADVAIR 250/50 DISKUS INH SCH (19:18)
[2016-09-03] MEDS: LANOXIN PO SCH (20:55)
[2016-09-03] MEDS: CARDIZEM CD PO SCH (20:56)
[2016-09-03] MEDS ORDERED: COUMADIN PO ONE (21:00)
[2016-09-03] MEDS: RESTORIL PO PRN (21:02)
[2016-09-04] MEDS: MORPHINE IV PRN ×3 (00:19→18:21)
[2016-09-04] MEDS: CARAFATE LIQUID PO SCH ×4 (03:31→22:33)
[2016-09-04] MEDS: DUONEB (A & A) INH SCH ×6 (04:01→23:05)
[2016-09-04] MEDS: SODIUM CHLORIDE 0.9% INJ SCH ×2 (05:12→18:20)
[2016-09-04] MEDS: PROTONIX IV SCH ×2 (05:12→18:20)
[2016-09-04] MEDS: PERCOCET-5 PO PRN ×3 (05:20→22:33)
[2016-09-04 07:06] LABS: HEMATOCRIT 34.6 % (37.0-47.0); HEMOGLOBIN 10.7 g/dL (12.0-16.0); MCH 31.7 PG (27-31); MCHC 30.9 g/dL (33-37); MCV 102.4 FL (81-99); MPV 9.8 FL (7.4-10.4); RBC 3.38 XMIL (4.2-5.4)
[2016-09-04 07:17] LABS: INR 1.61; PROTIME 17.4 Seconds (9.2-11.7)
[2016-09-04] MEDS: LASIX PO SCH (08:40)
[2016-09-04] MEDS: AMOXIL PO SCH ×2 (08:40→22:34)
[2016-09-04] MEDS: CULTURELLE PO SCH ×2 (08:40→22:34)
[2016-09-04] MEDS: ALDACTONE PO SCH (08:40)
[2016-09-04] MEDS: BIAXIN PO SCH ×2 (08:41→22:42)
[2016-09-04] MEDS: LOVENOX SUBQ SCH ×2 (08:41→22:36)
[2016-09-04] MEDS: MYLICON DROPS PO SCH ×3 (08:45→18:21)
[2016-09-04] MEDS: BISMATROL PO SCH ×4 (08:45→22:36)
--- NOTE | 2016-09-04 13:37 | PROGRESS NOTE ---
DATE: 09/04/2016 SUBJECTIVE: The patient is resting comfortably in bed. She has no complaints. OBJECTIVE: Vital Signs: Temperature 98 degrees, blood pressure 115/60, heart rate 65, respirations 16, O2 saturations 97% on 2 L nasal cannula. General: This is an elderly female lying in bed in no acute distress. Head: Normocephalic, atraumatic. Heart: S1, S2. Normal. Regular rate and rhythm. Lungs: Clear to auscultation bilaterally. No wheezes, no rales. No rhonchi. Abdomen: Positive bowel sounds. Soft, nontender, nondistended. Extremities: No edema. No cyanosis. Neurologic: The patient is alert and oriented x3. LABS: INR 1.6. Hemoglobin 10, hematocrit 34. ASSESSMENT AND PLAN: 1. Gastrointestinal bleed. Resolved. 2. Duodenal ulcer. Continue with Protonix and Carafate. 3. Helicobacter pylori infection. Continue on triple therapy. This is day 12 of 14. 4. Mechanical aortic valve replacement. Continue with Lovenox plus Coumadin. The patient's INR today is 1.6. 5. Chronic obstructive pulmonary disease. Stable. 6. Atrial fibrillation. Continue on digoxin and Cardizem. 7. Pneumonia. Resolved. 8. Continue with physical therapy. 9. Disposition. The patient will be discharged home once her INR is therapeutic. cc: Emily Bloom MD
[2016-09-04] MEDS: ADVAIR 250/50 DISKUS INH SCH (19:22)
[2016-09-04] MEDS: CARDIZEM CD PO SCH (22:33)
[2016-09-04] MEDS: COUMADIN PO SCH (22:34)
[2016-09-04] MEDS: RESTORIL PO PRN (22:34)
[2016-09-04] MEDS: LANOXIN PO SCH (22:38)
[2016-09-05] MEDS: CARAFATE LIQUID PO SCH ×4 (01:29→21:35)
[2016-09-05] MEDS: MORPHINE IV PRN ×3 (01:30→17:42)
[2016-09-05] MEDS: DUONEB (A & A) INH SCH ×5 (04:10→19:23)
[2016-09-05] MEDS: PROTONIX IV SCH ×2 (06:09→17:42)
[2016-09-05] MEDS: SODIUM CHLORIDE 0.9% INJ SCH ×2 (06:09→17:42)
[2016-09-05] MEDS: PERCOCET-5 PO PRN ×3 (06:14→21:36)
[2016-09-05 07:40] LABS: HEMATOCRIT 35.4 % (37.0-47.0); MCH 31.7 PG (27-31); MCHC 31.1 g/dL (33-37); MPV 9.9 FL (7.4-10.4); RBC 3.47 XMIL (4.2-5.4)
[2016-09-05 08:05] LABS: INR 1.78; PROTIME 19.4 Seconds (9.2-11.7)
[2016-09-05] MEDS: AMOXIL PO SCH ×2 (09:02→21:37)
[2016-09-05] MEDS: CULTURELLE PO SCH ×2 (09:02→21:36)
[2016-09-05] MEDS: ALDACTONE PO SCH (09:02)
[2016-09-05] MEDS: BISMATROL PO SCH ×4 (09:03→21:37)
[2016-09-05] MEDS: LOVENOX SUBQ SCH ×2 (09:03→21:37)
[2016-09-05] MEDS: LASIX PO SCH (09:03)
[2016-09-05] MEDS: MYLICON DROPS PO SCH ×3 (09:03→17:43)
[2016-09-05] MEDS: BIAXIN PO SCH ×2 (09:03→21:36)
--- NOTE | 2016-09-05 15:25 | PROGRESS NOTE ---
DATE: 09/05/2016 SUBJECTIVE: The patient is sitting up in bed. She has no complaints. No acute events noted overnight. OBJECTIVE: Vital Signs: Temperature 98 degrees, blood pressure 120/56, heart rate 58, respirations 16, O2 saturations 97% on 2.5 L nasal cannula. General: This is an elderly female sitting in bed in no acute distress. Head: Normocephalic, atraumatic. Heart: S1, S2. Normal. Regular rate and rhythm. Lungs: Clear to auscultation bilaterally. Abdomen: Positive bowel sounds. Soft, nontender, nondistended. Extremities: No edema. No cyanosis. No calf tenderness. Neurological: Patient is alert and oriented x3. LABS: White blood cell count 7.3, hemoglobin 11, hematocrit 35, platelets 525,000. INR 1.78. ASSESSMENT AND PLAN: 1. Gastrointestinal bleed. Resolved. 2. Duodenal ulcer. Continue on Protonix and Carafate. 3. Helicobacter pylori infection. Continue on triple therapy. This is day 13 of 14. 4. Mechanical aortic valve replacement. Continue on Lovenox plus Coumadin. The patient's INR is 1.7 today. The patient states that she would like to go home with home health. The patient is followed at the [facility] for INR management. 5. Chronic obstructive pulmonary disease. Stable. 6. Atrial fibrillation. Continue on digoxin and Cardizem. 7. Pneumonia. Resolved. 8. Continue with physical therapy. 9. Disposition. The patient can be discharged tomorrow with home health to monitor her INR and have the results sent to the Coumadin clinic. cc: Emily Bloom MD
[2016-09-05] MEDS: CARDIZEM CD PO SCH (21:36)
[2016-09-05] MEDS: COUMADIN PO SCH (21:36)
[2016-09-05] MEDS: LANOXIN PO SCH (21:37)
[2016-09-05] MEDS: RESTORIL PO PRN (21:45)
[2016-09-06] MEDS: CARAFATE LIQUID PO SCH ×4 (06:24→20:07)
[2016-09-06] MEDS: SODIUM CHLORIDE 0.9% INJ SCH (06:25)
[2016-09-06] MEDS: PROTONIX IV SCH ×3 (06:25→20:08)
[2016-09-06] MEDS: MORPHINE IV PRN ×3 (06:28→17:56)
[2016-09-06] MEDS: DUONEB (A & A) INH SCH ×5 (07:31→23:35)
[2016-09-06 07:40] LABS: HEMATOCRIT 40.7 % (37.0-47.0); HEMOGLOBIN 12.7 g/dL (12.0-16.0); MCH 31.4 PG (27-31); MCHC 31.2 g/dL (33-37); MCV 100.5 FL (81-99); RBC 4.05 XMIL (4.2-5.4)
[2016-09-06 07:46] LABS: INR 2.01
[2016-09-06 07:48] LABS: AGAP 15; BUN 19 mg/dL (8-22); CALCIUM 9.8 mg/dL (8.8-10.2); CHLORIDE 93 mmol/L (98-107); COSMO 278; POTASSIUM 4.1 mmol/L (3.5-5.1); SODIUM 138 mmol/L (136-145); TCO2 30 mmol/L (25-35)
[2016-09-06 08:02] LABS: PROTIME 22.1 Seconds (9.2-11.7)
[2016-09-06] MEDS: BIAXIN PO SCH ×2 (08:49→20:06)
[2016-09-06] MEDS: CULTURELLE PO SCH ×2 (08:49→20:07)
[2016-09-06] MEDS: MYLICON DROPS PO SCH ×3 (08:49→20:10)
[2016-09-06] MEDS: BISMATROL PO SCH ×4 (08:49→20:09)
[2016-09-06] MEDS: LOVENOX SUBQ SCH ×2 (08:49→20:08)
[2016-09-06] MEDS: ALDACTONE PO SCH (08:49)
[2016-09-06] MEDS: AMOXIL PO SCH ×2 (08:49→20:07)
[2016-09-06] MEDS: LASIX PO SCH (08:49)
[2016-09-06] MEDS: PERCOCET-5 PO PRN ×3 (08:55→20:07)
--- NOTE | 2016-09-06 16:15 | PROGRESS NOTE ---
DATE: 09/06/2016 SUBJECTIVE: Patient has no focal complaints. OBJECTIVE: Vital signs: Blood pressure 135/53, heart rate is 61, respiratory 18, temperature 98.1 degrees. Cardiovascular: Regular rate and rhythm with a S1 click. Pulmonary: Bilateral breath sounds. Clear to auscultation. GI: Soft, nontender, nondistended. Bowel sounds are positive. LABORATORY DATA: INR is 2. Rest of her hemoglobin and hematocrit 12, 40, normal white count. CMP normal. PROBLEM LIST.: 1. Upper gastrointestinal bleed seems to have stabilized. She is currently on H. pylori treatment and stable. 2. Aortic valve replacement. She is on Lovenox and warfarin. We will continue to follow her INR and monitor. 3. Anemia appears to be overall stable. 4. Chronic obstructive pulmonary disease appears to be stable. DISPOSITION: Hopefully home tomorrow and we will have to do INR checks but we will continue to follow. cc: Ashok Mata MD
[2016-09-06] MEDS: ADVAIR 250/50 DISKUS INH SCH (19:30)
[2016-09-06] MEDS: RESTORIL PO PRN (20:06)
[2016-09-06] MEDS: COUMADIN PO SCH (20:06)
[2016-09-06] MEDS: LANOXIN PO SCH (20:07)
[2016-09-06] MEDS: CARDIZEM CD PO SCH (20:07)
[2016-09-07] MEDS: MORPHINE IV PRN ×3 (01:40→12:22)
[2016-09-07] MEDS: CARAFATE LIQUID PO SCH ×3 (01:40→14:30)
[2016-09-07] MEDS: DUONEB (A & A) INH SCH ×4 (03:15→15:27)
[2016-09-07] MEDS: PERCOCET-5 PO PRN ×3 (04:56→15:17)
[2016-09-07 06:27] LABS: HEMATOCRIT 36.2 % (37.0-47.0); HEMOGLOBIN 11.3 g/dL (12.0-16.0); MCH 31.7 PG (27-31); MCHC 31.2 g/dL (33-37); MCV 101.7 FL (81-99); MPV 9.4 FL (7.4-10.4); RBC 3.56 XMIL (4.2-5.4)
[2016-09-07 06:37] LABS: INR 2.56; PROTIME 28.5 Seconds (9.2-11.7)
[2016-09-07 06:45] LABS: AGAP 9; BUN 20 mg/dL (8-22); CALCIUM 9.3 mg/dL (8.8-10.2); CHLORIDE 95 mmol/L (98-107); COSMO 277; POTASSIUM 4.1 mmol/L (3.5-5.1); SODIUM 137 mmol/L (136-145); TCO2 33 mmol/L (25-35)
[2016-09-07] MEDS: BISMATROL PO SCH ×2 (09:57→14:23)
[2016-09-07] MEDS: MYLICON DROPS PO SCH ×2 (09:57→14:23)
[2016-09-07] MEDS: LASIX PO SCH (09:58)
[2016-09-07] MEDS: BIAXIN PO SCH (09:58)
[2016-09-07] MEDS: PROTONIX IV SCH (09:58)
[2016-09-07] MEDS: SODIUM CHLORIDE 0.9% INJ SCH (09:58)
[2016-09-07] MEDS: LOVENOX SUBQ SCH (09:58)
[2016-09-07] MEDS: ALDACTONE PO SCH (09:59)
[2016-09-07] MEDS: AMOXIL PO SCH (09:59)
[2016-09-07] MEDS: CULTURELLE PO SCH (10:03)
[2016-09-07 14:55] VITALS: BP 127/45
--- NOTE | 2016-09-08 03:40 | DISCHARGE SUMMARY ---
ADMISSION DATE: 08/16/2016 DISCHARGE DATE: 09/07/2016 DATE OF ADMISSION: 08/16/16. DATE OF DISCHARGE: 09/07/16. CONSULTATIONS: 1. Dr. Dayami Romero with Gastroenterology. 2. Dr. Mirza Tellez of Pulmonology. 3. Dr. Coffey with Cardiology. PERTINENT PROCEDURES: Abdomen and pelvis CT: Showed: 1. Short-segment of apparently mild small bowel wall thickening in the right lower quadrant, suggesting a possible fecal enteritis. 2. Cholelithiasis. Known fairly prominent noncalcified nodule in the right lower lobe near the anterior lung base. EGD performed by Dr. Romero: Showed: 1. Torturous esophagus, but grossly normal. 2. Hiatal hernia. 3. Erosive gastritis. 4. 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 Duodenal bulb ulcer. 6. Severe duodenitis. Abdomen and pelvis CT follow up: Showed distended colon filled with fluid, but no obstruction. Echocardiogram: Showed: 1. Adequate functioning mechanical aortic valve prosthesis with mild aortic regurgitation. 2. Ejection fraction of 65%. Chest CT: Showed: 1. Scattered calcified granuloma. 2. Severe atherosclerosis. 3. Aneurysmal dilatation of the ascending thoracic aorta. 4. Cardiomegaly. 5. Small right effusion. 6. Emphysema. DISCHARGE DIAGNOSES: 1. Upper GI bleed, now stable. Followed by Dr. Romero. 2. Duodenal ulcer. Continue PPI and Carafate. 3. Helicobacter pylori. The patient completed triple therapy. 4. Mechanical aortic valve replacement. The patient was bridged with Lovenox plus Coumadin. Her INR is 2. She will be discharged back home with home health. She is followed by the [facility] for her INR management. 5. Chronic obstructive pulmonary disorder, stable. 6. Atrial fibrillation. Continue on digoxin and Cardizem. 7. Pneumonia, resolved. HOSPITAL COURSE: Ms. Kc is a 76-year-old, female, well known to our service with a history of: 1. Chronic obstructive pulmonary disorder. 2. Chronic pain. 3. Prescription medication dependence. 4. AVR on Coumadin. 5. With previous admissions for profound coagulopathy, and others. Presented to the emergency department with lower back pain. She reports that she has had back pain for several years. She had been unable to get any more pain medication because her pain doctor, Dr. Wilhelm, had left [facility] and she was having to treat her pain with [id number] medications and occasionally seeing her primary care physician. She reported she took upwards to 10 Tylenol for pain relief. The family members did not want to watch her agonize in pain anymore, so they brought her to the emergency department, where she had diagnostics done. She was noted to have a white count of 37. Her INR was greater than 11.25 with an hemoglobin and hematocrit of 6 and 18. She did report melanic stools and abdominal pain. The patient was initially admitted to the Intensive Care Unit for her coagulopathy. She was reversed with FFP and vitamin K with a GI consult. Her Coumadin was held. She was transfused with 2 units of packed red blood cells. The patient was n.p.o. for her GI bleeding. She was started on IV fluids as well as Protonix. Hemodynamically, the patient was stable. This patient underwent an EGD with Dr. Romero that showed a torturous esophagus, but normal, erosive gastritis, multiple nonbleeding AVMs in the body and fundus, duodenal ulcers, severe duodenitis. She was started on a Protonix drip. Added Carafate. And again, I upped her She was checked for H. pylori, which was positive. She did undergo 2 weeks of treatment. She was also found to have a pneumonia that she was completely treated. After the patient's GI bleed resolved, she was restarted back on her home Coumadin, as well as a Lovenox bridge. Ms. Kc has worked with physical therapy. We put a Social Service consult in for rehabilitation placement. However the patient adamantly refuses to go to rehabilitation. She states she does live alone, but she has a son that lives in a camper in her yard and also a daughter who helps with her care. She does have a cane, O2 nebulizers, and home health that comes to her residence. With the patient's INR been at 2, she will go home on Coumadin at her regular scheduled dose at 5 mg. she will need to follow up with the [facility], as well as Dr. Romero in 4 weeks. The patient was initiated on p.o. Lasix as well as spironolactone. She will continue with Carafate. She has been given a prescription for pain medication. PHYSICAL EXAMINATION: Vitals: Temperature is 97.7 degrees, heart rate 58, respirations 13, blood pressure 145/51 O2 is 96%. On 2 L nasal cannula. General: Ms. Kc is a pleasant, 76-year- old female, lying in bed. Psych: In no acute distress. HEENT: Atraumatic normocephalic. PERRLA. Neck: Supple. Trachea midline. CV: No murmurs, gallops, or rubs. Respiratory: Lung sounds clear to auscultation. Nonlabored breathing GI: Soft, nontender, nondistended. Positive bowel sounds in all 4 quads. Extremities: Negative for edema. Neurological: No focal deficits noted. DISCHARGE DIET: Healthy heart. DISCHARGE MEDICATIONS: 1. Atenolol inhaler 1-2 puffs inhaled RT 4 times a day. 2. Digoxin 125 mcg p.o. every evening. 3. Diltiazem ER 240 mg p.o. at bedtime. 4. Colace 100 mg p.o. every morning. 5. Advair Diskus 1 puff inhaled every evening. 6. Lasix 40 mg p.o. daily. 7. Hume 5/325 p.o. b.i.d. 8. Ipratropium albuterol sulfate 3 mL inhaled t.i.d. p.r.n. 9. Lactobacillus ramus 1 each p.o. b.i.d. 10. Zofran ODT 8 mg p.o. t.i.d. 11. Spironolactone 25 mg p.o. daily. 12. Carafate 1 g p.o. every 6 hours. 13. Temazepam 30 mg p.o. at bedtime. 14. Coumadin 5 mg p.o. as directed. DISCHARGE DISPOSITION: The patient is being discharged home with home health and physical therapy. FOLLOWUP CARE: She will need to follow up with her primary care physician, Dr. Strickland , in 7-10 days, as well as Dr. Coffey in 2-[address] Romero in 4 weeks. DISCHARGE INSTRUCTIONS: The patient will need to have her INR monitored and have the results sent to the [facility]. The patient can return to the emergency department for any worsening symptoms. DISCHARGE TIME: Greater than 40 minutes. This is SAHIL Berry, doing a discharge summary for Dr. Mata. Dictated by SAHIL Berry for Ashok Mata MD cc: Ashok Mata MD
== END 2016-09-07 17:45 | disposition home health service (06) ==
LOC: ED 15:07 → SUATTDRO 18:43 → ICU 18:43 → 3S 08-18 17:49 → 3N 08-31 18:43
PROVIDERS: ATTEND Internal Medicine